=== PATIENT | male | born 1930 | race Caucasian/White ===

== ENCOUNTER 2016-10-28 20:20 | Inpatient (IN) | payer MEDICARE, OTHER ==
--- NOTE | ~2016-10-28 | EKG ---
PATIENT: NATALIA HENRY UNIT #: [id number] Ventricular Rate: 78 BPM Atrial Rate: 87 BPM QRS Duration: 132 ms Q-T Interval: 388 ms QTC Calculation(Bezet): 442 ms Calculated R Crescent: 78 degrees Calculated T Crescent: 40 degrees Diagnosis Line: Atrial fibrillation Diagnosis Line: Right bundle branch block Diagnosis Line: Abnormal ECG Diagnosis Line: When compared with ECG of 24-FEB-2014 20:26, Diagnosis Line: No significant change was found Diagnosis Line: Confirmed by CARLINE SALDAÑA MD ([id number]) on 10/29/2016 Diagnosis Line: 6:12:30 PM INTERPRETING MD: PIPER STRICKLAND
--- NOTE | ~2016-10-28 | CT57 ---
[facility] A Service of [facility] RADIOLOGY TEXT RESULTS PATIENT: NATALIA HENRY LOCATION: [facility] 54- : 29 UNIT #: [id number] AGE: [address]: Jordon Cadet MD SEX: M ORDER DR: [id number] [facility] [address]. [place], [place] [address] [id number] MR#: [id number] Acc #: [id number] NAME: NATALIA HENRY. : 1930 SEX: M STUDY DATE/TIME: 10/29/2016 15:56 UNIT: [facility] ROOM: [facility] STUDY DESCRIPTION: CT Chest Wo Cont Attending Physician: Jordon Cadet M.D. Referring Physician: David Vivas M.D. Ordering Physician: Earl Mckinley M.D. Primary Care Physician: David Vivas M.D. MEDICAL IMAGING REPORT This report is preliminary unless electronic signature is present EXAM High-resolution chest CT without contrast. INDICATIONS 86-year-old male with respiratory failure. Increased difficulty breathing for [address] of the chest was performed without contrast. Coronal and sagittal reformatted images were obtained. This CT exam was performed with one or more of the following radiation dose reduction techniques: automatic exposure control, adjustment of mA and/or kV according to patient size, and iterative reconstruction. COMPARISON STUDIES Chest CT from 07/14/2010. FINDINGS Emphysema. Dense consolidation in the left lower lobe, most consistent with pneumonia. 1.3-cm pulmonary nodule in the right lower lobe on image 41. The chronicity of this nodule is uncertain, but it is new compared with 2010. There is a second nodule in the right lower lobe measuring about 6 mm, which also is new since 2010. Selected HRCT imaging demonstrates mild cylindrical bronchiectasis in the lower lobes. There is no honeycombing. Trace bilateral pleural effusions. Stable prominent mediastinal lymph nodes. These are likely reactive. Coronary artery calcifications. Enlargement of the main pulmonary artery, which is nonspecific, but can be seen with pulmonary arterial hypertension. Limited imaging of the upper abdomen demonstrates multiple partially imaged hepatic cysts. Bone windows demonstrate degenerative changes of the spine. [facility]. [facility] A Service of [facility] & [facility] RADIOLOGY TEXT RESULTS PATIENT: NATALIA HENRY LOCATION: [facility] [phone] : 29 UNIT #: [id number] AGE: [address]: Jordon Cadet MD SEX: M ORDER DR: IMPRESSION 1. There is a dense consolidation in the left lower lobe most consistent with pneumonia. 2. There is a 1.3-cm nodule in the right lower lobe which is new since 2009, but the exact age of the nodule is uncertain. Benign and malignant etiologies are within the differential. Given the patient's emphysema, I would suggest either a PET/CT or short-interval 3-month follow-up chest CT. 3. 6-mm nodule in the right lower lobe, as well, can be followed. 4. Trace pleural effusions bilaterally. Dictated by... Esdras Lindquist M.D. THIS IS AN ELECTRONICALLY VERIFIED REPORT Esdras Lindquist M.D. at 10/30/2016 8:09 AM Robert TD: 10/29/2016 18:37 JOB #: [id number] MEDICAL IMAGING REPORT COPY
--- NOTE | ~2016-10-28 | DS ---
Unit #: [id number] #: [id number] Patient: NATALIA HENRY [id number] [address] [place], [place] [address] [id number] I MR#: [id number] NAME: NATALIA HENRY ROOM: 548 Age: 86 Sex: M Admission Date: 10/28/2016 : 1930 Discharge Date: 10/31/2016 Attending Physician: Jordon Cadet M.D. Referring Physician: David Vivas M.D. Primary Care Physician: David Vivas M.D. DISCHARGE SUMMARY ADMISSION DIAGNOSES Acute on chronic hypoxic respiratory failure, community-acquired pneumonia, diabetes, and stage 3 chronic kidney disease. DISCHARGE DIAGNOSIS Chronic respiratory failure with nocturnal oxygen. HOSPITAL COURSE The patient is an 86-year-old male, admitted to 10/28/2016 secondary to shortness of breath. In the emergency department, he states that his symptoms began about one week prior to admission. In the ED, he was noted to have temperature of a 101.3 and oxygen saturation of 83% on room air. Chest x-ray seemed consistent with pneumonia. The patient was started on Rocephin and Zithromax, and admitted to the hospital. The patient did well on said antibiotics and Xopenex as well. He underwent a CT of his chest that revealed 1.3 cm nodule in the right lower lobe of unknown significance. He was recommended CT scan 3-month followup. In addition to this, there was indeed noted to be a dense consolidation of the left lower lobe consistent with pneumonia. At this time, the patient's shortness of breath has largely resolved. He is saturating 93% on room air and is being discharged home on oral antibiotics at this time. DISCHARGE MEDICATIONS Flomax 0.4 mg p.o. daily, Coumadin 4 mg p.o. daily, atenolol 12.5 mg p.o. daily, Metamucil one pack daily, Breo Ellipta 100/25 one puff daily, oxygen 3 L at bedtime and p.r.n. during this convalescent, Lasix 40 mg p.o. daily, multivitamin daily, Amaryl 4 mg p.o. b.i.d., azithromycin 500 mg p.o. daily, Ceftin 500 mg p.o. b.i.d. FOLLOWUP The patient should follow up with Dr. Jacobs or Dr. Mckinley at the end of his antibiotic course. As mentioned above, he needs a followup chest CT without contrast in 3 months. Dictated by... Jordon Cadet M.D. [facility]/modl Unit #: [id number] #: [id number] Patient: NATALIA HENRY TD: 11/03/2016 04:56 JOB #: [id number] DISCHARGE SUMMARY X Jordon Cadet MD X DISCHARGE SUMMARY
--- NOTE | ~2016-10-28 | HP ---
Unit #: [id number] #: [id number] Patient: NATALIA HENRY [id number] [address] [place], [place] [address] [id number] I MR#: [id number] NAME: NATALIA HENRY. ROOM: 98203 Age: 86 Sex: M Admission Date: 10/28/2016 : 1930 Attending Physician: Roma Davila M.D. Referring Physician: David Vivas M.D. Primary Care Physician: David Vivas M.D. HISTORY AND PHYSICAL CHIEF COMPLAINT Community acquired pneumonia with acute hypoxic respiratory failure. HISTORY This pleasant 86-year-old male with COPD, MARY, hypertension, atrial fibrillation, is admitted for pneumonia. The patient was in his usual state of health until one week prior to admission when he developed increasing shortness of breath. He saw his primary care physician who started steroids. Since has developed a deep cough productive of thick yellow sputum. Today felt feverish and extremely weak as if he had the flu, and has been wheezing somewhat. He presented to this emergency department tonight with a temperature of 101.3, O2 saturation of 83% on room air. Chest x-ray was read as congestive heart failure versus atypical pneumonia. In the ER, the patient was given a gram of Tylenol, Rocephin, Zithromax, and referred for admission. He currently is feeling improved. PAST MEDICAL HISTORY 1. Previous admission 2013 for community acquired pneumonia. 2. AODM. 3. COPD and obstructive sleep apnea on CPAP, followed by Dr. Jacobs. 4. Hypertension. 5. GERD. 6. Atrial fibrillation, chronically anticoagulated with normal LV function on echo 01/2010. 7. BPH. 8. AODM. 9. Chronic kidney disease. 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 11. Hernia repair. 12. Left knee surgery. 13. 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 ALLERGIES No known drug allergies. HOME MEDICATIONS Breo Ellipta one puff daily; p.r.n. Albuterol; eye tablets daily; Amaryl 4 mg b.i.d.; Lasix 40 mg daily; Coumadin 4 mg daily; atenolol 12.5 mg daily; Flomax 0.4 mg daily. FAMILY HISTORY Noncontributory given patient's age. Unit #: [id number] #: [id number] Patient: NATALIA HENRY SOCIAL HISTORY The patient lives with his . He has a 50 pack year smoking history but stopped smoking over 20 years ago. Does not drink alcohol except on a very seldom basis. 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 REVIEW OF SYSTEMS Notable for productive cough, wheezing, shortness of breath, fever, weakness, COPD, MARY, hypertension, GERD, atrial fibrillation, BPH, chronic kidney disease, AODM, obstructive sleep apnea and above mentioned surgeries. All other systems were reviewed and are negative. PHYSICAL EXAMINATION GENERAL: Pleasant, young appearing 86-year-old male currently in no acute distress. VITAL SIGNS: Temperature 101.3, pulse 85, respirations 18, blood pressure 97/74, O2 saturation is 83% on room air. HEENT: Eyes - PERRLA, extraocular muscles are intact. Pharynx is benign. NECK: Supple without adenopathy or thyromegaly. CHEST: There are crackles at the bases but there is definitely more crackles on the right base than the left. CARDIAC: Irregular S1 and S2 without murmur. ABDOMEN: Bowel sounds are present. No hepatosplenomegaly, tenderness or masses. EXTREMITIES: Without clubbing, cyanosis or edema. NEUROLOGIC: Patient is awake, alert and oriented. Cranial nerves are intact. Equal strength throughout but generally weak on exam. DIAGNOSTIC STUDIES ADMISSION LABS: Hematocrit is 35, white blood count is 14.5, normal platelet count. SMA 12 - glucose 203, BUN 39, creatinine 1.6, up from a BUN of 26, creatinine 1.4 three years ago, chloride is 99, calcium 8.3, bilirubin is normal. BNP mildly elevated to 254. Lactic acid normal. INR is 3. Flu serology negative. Urinalysis negative. IMAGING STUDIES: Chest x-ray read as congestive heart failure and chronic lung disease, versus atypical pneumonia, moderate cardiomegaly. CARDIOLOGY STUDIES: EKG - atrial fibrillation rate 78 with a right bundle branch block. Unchanged from before. ASSESSMENT 1. Community acquired pneumonia with acute hypoxic respiratory failure and underlying COPD. 2. Atrial fibrillation, anticoagulated with normal ejection fraction 2009. 3. AODM. 4. BPH. 5. Chronic kidney disease, a little worse. 6. Obstructive sleep apnea. PLANS 1. Rocephin and Zithromax pending cultures and placed on Florastor. 2. Will give a bolus of IV fluids. 3. Hold Lasix for now. 4. Xopenex and continue Breo Ellipta. 5. 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 6. Daily PT and INR. Unit #: [id number] #: [id number] Patient: NATALIA HENRY 7. Will hold on placing on steroids, as patient does not have significant bronchospasm at present. Dictated by Roma Davila M.D. AML/ts TD: 10/29/2016 05:22 JOB #: [id number] HISTORY AND PHYSICAL X Roma Davila MD X HISTORY AND PHYSICAL
--- NOTE | ~2016-10-28 | CR72 ---
[facility] A Service of [facility] RADIOLOGY TEXT RESULTS PATIENT: NATALIA HENRY LOCATION: [place] [address] : 29 UNIT #: [id number] AGE: [address]: Jordon Cadet MD SEX: M ORDER DR: [id number] [facility] [address] [facility]. [place], [place] [address] [id number] I MR#: [id number] Acc #: [id number] NAME: NATALIA HENRY. : 1930 SEX: M STUDY DATE/TIME: 10/28/2016 19:56 UNIT: [facility] ROOM: 93016 STUDY DESCRIPTION: CR Chest Single View Portable Attending Physician: Roma Davila M.D. Referring Physician: David Vivas M.D. Ordering Physician: Mariann Knott M.D. Primary Care Physician: David Vivas M.D. MEDICAL IMAGING REPORT This report is preliminary unless electronic signature is present EXAM Single portable chest x-ray. DATE OF EXAM 10/28/2016 CLINICAL HISTORY Cough, short of air, weakness and congestion starting today, low O2 sats, history of hypertension. No injury. REPORT Single frontal portable view of the chest timed 19:56 on 10/28/2016. COMPARISON Compared to a study from 07/03/2015. FINDINGS There is again moderate cardiac silhouette enlargement, and there is underlying chronic lung disease with areas of probably emphysematous change in the upper lungs and parenchymal scarring more prominent in the lower lungs. On the current study, I believe there is now superimposed interstitial edema and some patchy alveolar changes. Findings probably due to superimposed congestive failure, but please exclude any clinical concern for atypical infectious process. Minor blunting of the costophrenic angles is chronic. No pneumothorax. IMPRESSION Findings together most suggestive of congestive failure superimposed upon underlying chronic lung disease. Please correlate further clinically and exclude any concern for atypical infectious pathology or other causes of interstitial edema and probably some early alveolar disease. Moderate cardiac silhouette enlargement. [facility] A Service of [facility] RADIOLOGY TEXT RESULTS PATIENT: NATALIA HENRY LOCATION: [place] [address] : 29 UNIT #: [id number] AGE: [address]: Jordon Cadet MD SEX: M ORDER DR: Dictated by... Susie Castro M.D. THIS IS AN ELECTRONICALLY VERIFIED REPORT Susie Castro M.D. at 10/29/2016 2:16 PM MIKE/luis alfredo TD: 10/29/2016 00:07 JOB #: [id number] MEDICAL IMAGING REPORT COPY
--- NOTE | ~2016-10-28 | CO ---
Unit #: [id number] #: [id number] Patient: NATALIA HENRY [id number] [address] [place], [place] [address] [id number] I MR#: [id number] NAME: NATALIA HENRY ROOM: 548 Age: 86 Sex: M Admission Date: 10/28/2016 : 1930 Attending Physician: Jordon Cadet M.D. Primary Care Physician: David Vivas M.D. Consultation Date: 10/29/2016 CONSULTATION REPORT JOB NOTE: CC: DR. DAVID VIVAS. REASON FOR CONSULTATION Possible pneumonia, COPD, respiratory failure. HISTORY OF PRESENT ILLNESS An 86-year-old gentleman with multiple medical problems including COPD, obstructive sleep apnea on CPAP, chronic respiratory failure on nocturnal oxygen, has had a 4 to 5-day history of not feeling well. On day of admission, he became quite weak. Upon admission to the emergency room, he had fever to 101.3. He has had mucopurulent sputum. No real wheezing, hemoptysis, or chest pain. He was treated with Rocephin and Zithromax and he does feel better today. PAST MEDICAL HISTORY Remarkable for COPD, chronic respiratory failure with nocturnal oxygen, obstructive sleep apnea on CPAP, diabetes, hypertension, atrial fibrillation, gastroesophageal reflux, and chronic kidney disease. MEDICATIONS At home, he is on Breo one puff a day, Amaryl, Lasix, Coumadin, atenolol, Flomax. He tells me he has a nebulizer at home with two medicines in it, I suspect DuoNeb. ALLERGIES No known medical allergies. 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 He quit smoking 20 years ago. FAMILY HISTORY No definite familial lung disease. REVIEW OF SYSTEMS He did not notice any fever at home, but may have had some chills. He does feel better today. No definite wheezing. No chest pain, palpitations, abdominal pain, melena, hematochezia, or difficulty swallowing. He tolerates his CPAP well without difficulty and wears it nightly. He has noticed increased shortness of breath over the last 1 year even prior to this illness. No leg pain swelling, dysuria, or hematuria. Further review of systems negative. PHYSICAL EXAMINATION Unit #: [id number] #: [id number] Patient: NATALIA HENRY GENERAL: Reveals a gentleman, who is in no acute distress, eating lunch, on his oxygen. VITAL SIGNS: He is currently afebrile, pulse 98, respiratory rate is 18, blood pressure is 113/59, 5 foot 9 inches, weight 201, BMI is 29. HEENT: Pupils are equal, round, and reactive to light. Sclerae anicteric. Head, atraumatic. Mucous membranes moist. He has natural teeth. NECK: Supple. No supraclavicular or cervical adenopathy appreciated. CHEST: He has fine bibasilar inspiratory crackles. No consolidation. CARDIAC: Reveals an irregular rhythm controlled rate, possible soft murmur. ABDOMEN: Soft and nontender. No hepatomegaly or rebound. EXTREMITIES: Reveal no clubbing, cyanosis, or edema. SKIN: Some mild brawny induration changes in lower extremities. No acute rash. NEUROLOGIC: Grossly intact. No focal motor or sensory deficits. DIAGNOSTIC STUDIES IMAGING STUDIES: Chest x-ray, faint increased interstitial markings. No definite lobar infiltrate. LABORATORY RESULTS: BUN is 39, creatinine is 1.6 which appears near to his baseline. His BNP is 254. Lactic acid 1.4. INR 3.0. Cardiac enzymes negative. White blood cell count was 14.5, hemoglobin 11.5, platelet count 149, no eosinophilia. Flu screen negative. Urinalysis, no definite urinary tract infection. Strep screen negative. Blood cultures pending. CARDIOVASCULAR STUDIES: EKG; right bundle-branch block, atrial fibrillation. IMPRESSION 1. Fever with sputum production suspect occult pneumonia. 2. Acute on chronic respiratory failure. 3. Chronic respiratory failure with nocturnal oxygen. 4. Obstructive sleep apnea, on CPAP with stated compliance. 5. Chronic obstructive pulmonary disease, no active bronchospasm. 6. My exam and x-ray suspect pulmonary fibrosis. 7. Atrial fibrillation, permanent. 8. Multiple medical problems listed above. PLAN Antibiotics for now. We will check sputum culture and follow up blood cultures. I will also check a respiratory pathogen panel in addition to strep and Legionella urinary antigen. When better and closure to discharge, his room air oxygenation needs will need to be checked. Continue his Breo, or substitute, nebulized bronchodilators. I will check a high-resolution CT scan for possible fibrosis and this also will identify any lobar pneumonia. Thank you very much for allowing me to participate in the care of Mr. Henry. Dictated by... Zeinab Rawls/yessenia Unit #: [id number] #: [id number] Patient: NATALIA HENRY TD: 10/30/2016 01:10 JOB #: [id number] CONSULTATION REPORT X Earl Mckinley MD CONSULTATION REPORT
[2016-10-28 19:56] LABS: BASOPHIL% 0.1 % (0-2.5); HEMOGLOBIN 11.5 gm/dL (13.0-16.0); LYMPHOCYTE# 0.5 X10e3 (1.0-3.5); LYMPHOCYTE% 3.3 % (17.0-45.0); MEAN CELL VOLUME 95.3 FL (83-96); MEAN CORPUSCULAR HEMOGLOBIN 31.4 PG (28-34); MEAN PLATELET VOLUME 8.8 FL (6.5-11.5); MONOCYTE# 1.3 X10e3 (0-1.0); MONOCYTE% 8.6 % (3.0-12.0); NEUTROPHIL# 12.8 X10e3 (1.5-7.1); PLATELET COUNT 149 X10e3 (140-420); RED BLOOD COUNT 3.67 X10e (3.90-5.60); WHITE BLOOD COUNT 14.5 X10e3 (4.0-10.5)
[2016-10-28 20:01] LABS: DIFF IND NO
[2016-10-28 20:20] LABS: ALBUMIN SERUM 3.3 g/dL (3.5-5.0); BILIRUBIN, DIRECT 0.4 mg/dL (0.0-0.2); BILIRUBIN,INDIRECT 0.7 mg/dL (0.0-0.9); BILIRUBIN,TOTAL 1.1 mg/dL (0.2-2.0); BUN/CREATININE RATIO 24.37; CALCIUM SERUM 8.3 mg/dL (8.4-10.2); CREATININE SERUM 1.6 mg/dL (0.6-1.4); GLOM FILT RATE Estimated 43.7 mL/min (>60); POTASSIUM 3.5 mmol/L (3.5-5.1); PROTEIN TOTAL SERUM 6.8 g/dL (6.0-8.3)
[~2016-10-28 20:20] MED LIST: ADVAIR 250-501 EACH IH; ATENOLOL PO; ATENOLOL-CHLORT1 TA3 PO; ATENOLOL25 MG PO; AUGMENTIN875 M1 PO; AZITHROMYCIN250 MG PO; COUMADIN1 MG PO; COUMADIN4 MG PO; COUMADIN5 MG PO; FLOMAX0.4 M1 PO; GLIMEPIRIDE2 MG PO; HUMIBID-LA600 MG PO; LASIX20 MG PO; LEVAQUIN25 MG/ML PO; OXYGEN; ROBITUSSIN100 MG/52 PO
[2016-10-28 20:25] LABS: URINE SOURCE CLEAN CATCH
[2016-10-28 20:33] LABS: URINE APPEARANCE CLEAR; URINE BILIRUBIN NEG (NEG); URINE BLOOD NEG (NEG); URINE COLOR YELLOW; URINE GLUCOSE NEG (NEG); URINE KETONE NEG (NEG); URINE LEUKOCYTE ESTERASE NEG (NEG); URINE NITRATE NEG (NEG); URINE PROTEIN NEG (NEG); URINE SPECIFIC GRAVITY 1.017 (1.003-1.035); URINE UROBILINOGEN 0.2 MG/DL (NEG)
[2016-10-28 20:36] LABS: CULTURE INDICATED? NO
[2016-10-28 21:51] LABS: POC - CKMB 4.8 ng/mL (0.0-7.9); POC - TROPONIN <0.05 ng/mL (<=0.05)
[2016-10-28 22:21] LABS: PROTHROMBIN TIME (PATIENT) 32.7 SECONDS (9.6-11.5)
[2016-10-28 22:27] LABS: INFLUENZA A NEG (NEG); INFLUENZA B NEG (NEG)
[2016-10-28] MEDS ORDERED: AMARYL PO (23:03)
[2016-10-28] MEDS ORDERED: BREO ELLIPTA 11 EACH INH (23:03)
[2016-10-28] MEDS ORDERED: EYE VITAMIN-MI1 EACH PO (23:03)
[2016-10-28] MEDS ORDERED: LASIX PO (23:04)
[2016-10-28] MEDS ORDERED: ATENOLOL25 MG PO (23:04)
[2016-10-28] MEDS ORDERED: FLOMAX0.4 M1 PO (23:04)
[2016-10-28] MEDS ORDERED: COUMADIN4 MG PO (23:04)
[2016-10-28 23:13] LABS: POC - CKMB 3.8 ng/mL (0.0-7.9); POC - TROPONIN <0.05 ng/mL (<=0.05)
[2016-10-29] MEDS ORDERED: OXYGEN (07:41)
[2016-10-29] MEDS ORDERED: METAMUCIL1 PKT PO (08:27)
[2016-10-30 05:43] LABS: BASOPHIL% 0.2 % (0-2.5); EOSINOPHIL% 0.2 % (0.0-7.0); HEMATOCRIT 33.2 % (38.0-50.0); LYMPHOCYTE# 1.3 X10e3 (1.0-3.5); LYMPHOCYTE% 11.7 % (17.0-45.0); MEAN CELL VOLUME 95.9 FL (83-96); MEAN CORPUSCULAR HEMOGLOBIN 31.8 PG (28-34); MEAN CORPUSCULAR HGB CONC 33.1 g/dL (30-36); MEAN PLATELET VOLUME 9.2 FL (6.5-11.5); MONOCYTE# 1.2 X10e3 (0-1.0); MONOCYTE% 11.4 % (3.0-12.0); NEUTROPHIL# 8.2 X10e3 (1.5-7.1); NEUTROPHIL% 76.5 % (40-75); PLATELET COUNT 150 X10e3 (140-420); RED BLOOD COUNT 3.46 X10e (3.90-5.60); RED CELL DISTRIBUTION WIDTH 17.3 % (11.0-15.5); WHITE BLOOD COUNT 10.7 X10e3 (4.0-10.5)
[2016-10-30 05:51] LABS: PROTHROMBIN TIME (PATIENT) 32.3 SECONDS (9.6-11.5)
[2016-10-30 05:53] LABS: DIFF IND NO
[2016-10-30 07:05] LABS: CALCIUM SERUM 8.5 mg/dL (8.4-10.2); CREATININE SERUM 1.4 mg/dL (0.6-1.4); POTASSIUM 3.8 mmol/L (3.5-5.1)
[2016-10-31 06:03] LABS: HEMATOCRIT 32.6 % (38.0-50.0); HEMOGLOBIN 10.8 gm/dL (13.0-16.0); MEAN CELL VOLUME 95.1 FL (83-96); MEAN CORPUSCULAR HEMOGLOBIN 31.6 PG (28-34); MEAN CORPUSCULAR HGB CONC 33.2 g/dL (30-36); MEAN PLATELET VOLUME 8.9 FL (6.5-11.5); RED BLOOD COUNT 3.43 X10e (3.90-5.60); RED CELL DISTRIBUTION WIDTH 17.4 % (11.0-15.5)
[2016-10-31 06:48] LABS: INR 3.2; PROTHROMBIN TIME (PATIENT) 35.1 SECONDS (9.6-11.5)
[2016-10-31 06:52] LABS: BLOOD UREA NITROGEN 24 mg/dL (9-23); BUN/CREATININE RATIO 21.81; CALCIUM SERUM 8.7 mg/dL (8.4-10.2); CARBON DIOXIDE 30 mmol/L (22-31); CHLORIDE 101 mmol/L (100-111); CREATININE SERUM 1.1 mg/dL (0.6-1.4); GLOM FILT RATE Estimated ABOVE60 mL/min (>60); GLUCOSE FASTING 207 mg/dL (70-110); SODIUM 141 mmol/L (135-145)
[2016-10-31] MEDS ORDERED: ZITHROMAX500 MG PO (13:51)
[2016-10-31] MEDS ORDERED: CEFTIN500 MG PO (13:52)
== END 2016-10-31 14:46 | disposition home or self-care (01) | DRG 193 ==
LOC: CED 20:20 → CEDOF 23:45 → C5B 10-29 07:24
PROVIDERS: Emergency Medicine; Internal Medicine
DX: J18.9 Pneumonia, unspecified organism (principal); J96.21 Acute and chronic respiratory failure with hypoxia; E11.22 Type 2 diabetes mellitus with diabetic chronic kidney disease; J44.9 Chronic obstructive pulmonary disease, unspecified; G47.33 Obstructive sleep apnea (adult) (pediatric); I48.91 Unspecified atrial fibrillation; Z79.84 Long term (current) use of oral hypoglycemic drugs; K21.9 Gastro-esophageal reflux disease without esophagitis; Z79.01 Long term (current) use of anticoagulants; I12.9 Hypertensive chronic kidney disease with stage 1 through stage 4 chronic kidney disease, or unspecified chronic kidney disease; Z99.81 Dependence on supplemental oxygen; Z87.891 Personal history of nicotine dependence; N18.3 Chronic kidney disease, stage 3 (moderate)
CPT/HCPCS: 36415; 71010; 71250; 80048; 80076; 81003; 82553; 82947; 83605; 83880; 84484; 85025; 85027; 85610; 87040; 87070; 87205; 87449; 87651; 87804; 87880; 87899; 93005; 94640; 94760; 96365; 99285; J0456; J0696; J1815

== ENCOUNTER → 2017-02-11 | Outpatient (CLI) | payer MEDICARE, OTHER ==
[~2017-02-11] MED LIST changes: +AMARYL PO; +AMARYL2 MG PO; +BREO ELLIPTA 11 EACH INH; +CEFTIN500 MG PO; +EYE VITAMIN-MI1 EACH PO; +LASIX PO; +METAMUCIL1 PKT PO; +TENORMIN25 MG PO; +ZITHROMAX500 MG PO
--- NOTE | ~2017-02-11 | CT57 ---
[facility] A Service of [facility] & [facility] RADIOLOGY TEXT RESULTS PATIENT: NATALIA HENRY LOCATION: [facility] : 29 UNIT #: [id number] AGE: [address]: Calderon Jacobs MD SEX: M ORDER DR: [id number] [place] [id number] [facility]. [place], [place] [address] [id number] O MR#: [id number] Acc #: [id number] NAME: NATALIA HENRY. : 1930 SEX: M STUDY DATE/TIME: 02/11/2017 12:21 UNIT: [facility] ROOM: STUDY DESCRIPTION: CT Chest Wo Cont Attending Physician: Calderon Jacobs M.D. Referring Physician: Calderon Jacobs M.D. Ordering Physician: Calderon Jacobs M.D. Primary Care Physician: David Vivas M.D. MEDICAL IMAGING REPORT This report is preliminary unless electronic signature is present EXAM CT chest without contrast high-resolution protocol INDICATIONS Pulmonary fibrosis. Follow up pulmonary nodule and dense consolidation, previously shown in the left lower lobe. PROCEDURE Unenhanced CT of the chest utilizing high-resolution protocol. This CT exam was performed with one or more of the following radiation dose reduction techniques: automatic exposure control, adjustment of mA and/or kV according to patient size, and iterative reconstruction. COMPARISON 10/29/2016 FINDINGS Centrilobular emphysema. Previously demonstrated left lower lobe opacity has resolved. Redemonstration of diffuse subpleural interstitial thickening and scattered areas of scarring. There is no honeycombing. [id number] diffuse bronchiectasis. Previously demonstrated right lower lobe nodule has increased in size. It now measures 2.1 cm, previously 1.1 cm. There is scattered new nodules in both lungs. Index nodule posterior left upper lobe measures up to 9 mm. No pleural fluid or pneumothorax. No significant air trapping. Mildly prominent mediastinal lymph nodes are unchanged. Prominence of the pulmonary arteries. The right measures 3.9 cm in diameter. Coronary artery calcification. Mild cardiomegaly. No acute findings in the included upper abdomen. No aggressive appearing bone lesion. Stable subcutaneous nodules in the back. STS. [facility] A Service of [facility] & [facility] RADIOLOGY TEXT RESULTS PATIENT: NATALIA HENRY LOCATION: [facility] : 29 UNIT #: [id number] AGE: [address]: Calderon Jacobs MD SEX: M ORDER DR: IMPRESSION 1. Subpleural interstitial thickening and scarring is unchanged from the previous study. There is no honeycombing to suggest a UIP type pattern. 2. Interval clearing of the left lower lobe opacity. 3. Increase in size of the right lower lobe nodule as well as development of a few new nodules scattered in both lungs. Suspicious for metastatic disease. Correlate with any relevant history. Consider evaluation with a PET scan to evaluate malignant potential and extent of disease. 4. Centrilobular emphysema. Underlying pulmonary arterial hypertension. Dictated by... Charli Gifford M.D. THIS IS AN ELECTRONICALLY VERIFIED REPORT Charli Gifford M.D. at 02/12/2017 10:22 PM Inocencia TD: 02/12/2017 16:29 JOB #: [id number] MEDICAL IMAGING REPORT Page 1 of 1 COPY
== END | disposition home or self-care (01) ==
LOC: CCAT 12:09
DX: J84.10 Pulmonary fibrosis, unspecified (principal); R91.1 Solitary pulmonary nodule; J98.4 Other disorders of lung; R91.8 Other nonspecific abnormal finding of lung field; J43.2 Centrilobular emphysema
CPT/HCPCS: 71250

== ENCOUNTER 2017-05-12 03:09 | Inpatient (IN) | payer MEDICARE, OTHER ==
[~2017-05-12] VITALS: Ht 175.3 cm; Wt 99.0 kg
--- NOTE | ~2017-05-12 | DS ---
Unit #: [id number] #: [id number] Patient: NATALIA HENRY [id number] [address] [place], [place] [address] [id number] I MR#: [id number] NAME: NATALIA HENRY ROOM: 215 Age: 86 Sex: M Admission Date: 05/12/2017 : 1930 Discharge Date: 05/17/2017 Attending Physician: Xiang Ochoa M.D. Primary Care Physician: David Vivas M.D. DISCHARGE SUMMARY REASON FOR ADMISSION Shortness of breath, productive cough, probable community-acquired pneumonia, profound weakness. HISTORY OF PRESENT ILLNESS/HOSPITAL COURSE The patient is a very pleasant 86-year-old male, who originally presented secondary to shortness of breath, dyspnea, and profound weakness. He apparently had been having weakness for the past several days. He underwent evaluation in the emergency room, which showed a CT chest concerning for possible metastatic disease versus primary lung carcinoma, also consistent with community-acquired pneumonia. He was noted to be in acute hypoxic respiratory failure with COPD exacerbation at that time. On initial evaluation, his abdomen was noted to be swollen and/or distended. He underwent a CT of abdomen and pelvis, which raised the possibility of free air and possible colonic perforation. This prompted surgical services evaluation. LSA saw and evaluated the patient. The patient ultimately underwent an evaluation and/or exploratory laparotomy, which did reveal a colon mass as well as perforation of colon. He underwent a colectomy as well as ostomy placement. He was maintained in the ICU with consultations placed to Dr. Mckinley for routine care as well as Dr. Long secondary to his prior history of aortic stenosis. Postoperatively, unfortunately, he continued to decline. His mental status declined as well as intractable pain. Secondary to concerning metastatic lesions, we placed consultation to Dr. Razo of oncology services. After review and discussion between Dr. Razo and family, decision was made for comfort care measures and/or hospice consultation. Therefore, at this point in time, his routine medications have been discontinued. Consultation has been placed to hospice for ongoing care. Unfortunately, his overall prognosis is poor. FINAL DISCHARGE/CURRENT DIAGNOSES 1. Colon cancer. 2. Perforated colon. 3. Sepsis present on admission. 4. Acute hypoxic/hypercapnic respiratory failure. 5. Duci-yr-mkqyrbmd aortic stenosis. 6. Coronary artery disease history. 7. Atrial fibrillation. 8. Chronic kidney disease. Unit #: [id number] #: [id number] Patient: NATALIA HENRY 9. Questionable metastatic lesions within lung. DISCHARGE DISPOSITION Comfort care measures and/or hospice care. After hospice evaluation, further disposition, scattered bed versus home versus inpatient hospice will be decided. Dictated by... Zeinab Floyd/yessenia TD: 05/20/2017 02:57 JOB #: [id number] DISCHARGE SUMMARY Page 1 of 1 X Xiang Ochoa MD X DISCHARGE SUMMARY
--- NOTE | ~2017-05-12 | XA166 ---
[facility] A Service of [facility] & [facility] RADIOLOGY TEXT RESULTS PATIENT: NATALIA HENRY LOCATION: [address] : [birth year] UNIT #: [id number] AGE: [address]: Xiang Ochoa MD SEX: M ORDER DR: [id number] [facility] [address] [place], [place] [address] [id number] I MR#: [id number] Acc #: [id number] NAME: NATALIA HENRY : 1930 SEX: M STUDY DATE/TIME: 05/12/2017 9:51 UNIT: [facility] ROOM: [facility] STUDY DESCRIPTION: XA PICC Line Placement WO Port Attending Physician: Xiang Ochoa M.D. Ordering Physician: Carlos Enrique Mckinley, Phd Primary Care Physician: David Vivas M.D. MEDICAL IMAGING REPORT This report is preliminary unless electronic signature is present EXAM Right sided PICC line placement INDICATIONS Need for IV access in a patient with pneumonia and pulmonary metastases. PRE-PROCEDURE The procedure was explained to the patient and/or patient community representative including risks, benefits, potential complications and potential for alternative forms of treatment. Informed consent was obtained, and prior to initiating the procedure a formal timeout procedure was performed. PROCEDURE Using full standard sterile barrier technique, including caps, gowns, gloves, masks, as well as sterile skin preparation and standard sterile draping, the right arm was prepped and draped in the usual fashion, and real-time sterile ultrasound guidance was used to localize an arm vein and to confirm vessel patency. A hard copy ultrasound image was recorded. After local anesthesia with 1% Xylocaine, the vein was punctured using real-time sterile ultrasound guidance, and an 0.018 guidewire was advanced into the superior vena cava, using fluoroscopic guidance. A 5-Tongan dual-lumen PICC was then measured and deployed with the tip positioned in the superior vena cava. The position of the line was documented with a radiographic image. The line was secured in place with an adhesive dressing and an antibiotic patch was applied. Total fluoro time was 0.1 minutes. A single fluoroscopic image was obtained. AK was 3 mGy. IMPRESSION Successful placement of a 6-Tongan dual-lumen PowerPICC via the arm under ultrasound and fluoroscopic guidance. The tip of the PICC is in good STS. [facility] A Service of [facility] / [facility] RADIOLOGY TEXT RESULTS PATIENT: NATALIA HENRY LOCATION: [address] : [birth year] UNIT #: [id number] AGE: [address]: Xiagn Ochoa MD SEX: M ORDER DR: position in the superior vena cava. Dictated by... Анна Arboleda M.D. THIS IS AN ELECTRONICALLY VERIFIED REPORT Анна Arboleda M.D. at 05/14/2017 2:44 PM AFF/pancho TD: 05/13/2017 13:09 JOB #: [id number] MEDICAL IMAGING REPORT Page 1 of 1 COPY
--- NOTE | ~2017-05-12 | CR71 ---
[facility] A Service of [facility] & [facility] RADIOLOGY TEXT RESULTS PATIENT: NATALIA HENRY LOCATION: [place] [id number] : [birth year] UNIT #: [id number] AGE: [address]: Xiang Ochoa MD SEX: M ORDER DR: [id number] [facility] [address] [facility]. [place], [place] [address] [id number] I MR#: [id number] Acc #: [id number] NAME: NATALIA HENRY : 1930 SEX: M STUDY DATE/TIME: 05/13/2017 21:39 UNIT: [facility] ROOM: [facility] STUDY DESCRIPTION: CR Chest Single View Attending Physician: Xiang Ochoa M.D. Ordering Physician: Deshawn Bazzi M.D. Primary Care Physician: David Vivas M.D. MEDICAL IMAGING REPORT This report is preliminary unless electronic signature is present EXAM Frontal chest, 05/13/2017. INDICATIONS Status post tube placement, short of air with exertion. Symptoms began today. TECHNIQUE Frontal chest compared with 0724 hours. FINDINGS ET tube tip in good position about 6 cm above the level of the alaina. Right-sided PICC line unchanged. There is a central line from a right neck approach terminating at the proximal SVC level. No pneumothorax. Interstitial prominence throughout both lungs persists. Probable atelectasis and small left effusion. Right-sided effusion and probable atelectasis in the mid and lower lung zones persists. There is pleural thickening or partially loculated pleural fluid tracking superiorly on the right. Faint pulmonary nodules on the left not significantly changed for technical factors. IMPRESSION 1. Tubes and lines appear to be in satisfactory position. No pneumothorax. 2. Cardiomegaly with bilateral effusions and probable bibasilar atelectasis right greater than left. 3. Faint lung nodules on the left not significantly changed. Dictated by... Rojas Anderson M.D. THIS IS AN ELECTRONICALLY VERIFIED REPORT Rojas Anderson M.D. at 05/14/2017 11:22 AM [facility] A Service of [facility] & [facility] RADIOLOGY TEXT RESULTS PATIENT: NATALIA HENRY LOCATION: [place] [address]03 : 29 UNIT #: [id number] AGE: [address]: Xiang Ochoa MD SEX: M ORDER DR: Teddy TD: 05/14/2017 09:32 JOB #: [id number] MEDICAL IMAGING REPORT Page 1 of 1 COPY
--- NOTE | ~2017-05-12 | CT2 ---
[facility] A Service of [facility] & [facility] RADIOLOGY TEXT RESULTS PATIENT: NATALIA HENRY LOCATION: [address] : [birth year] UNIT #: [id number] AGE: [address]: Xiang Ochoa MD SEX: M ORDER DR: [id number] [facility] [address] [facility]. [place], [place] [address] [id number] I MR#: [id number] Acc #: [id number] NAME: NATALIA HENRY. : 1930 SEX: M STUDY DATE/TIME: 05/13/2017 13:15 UNIT: [facility] ROOM: [facility] STUDY DESCRIPTION: CT Abd and Pelv W Cont Attending Physician: Xiang Ochoa M.D. Primary Care Physician: David Vivas M.D. MEDICAL IMAGING REPORT This report is preliminary unless electronic signature is present EXAM CT abdomen and pelvis 05/13 INDICATION Weakness for 1 week with abdominal pain for a few days. TECHNIQUE Axial images were obtained through the abdomen and pelvis following oral and IV contrast administration. Multiplanar reformats were obtained. Comparison made with noncontrast exam performed yesterday. This CT examination was performed with one or more of the following radiation dose reduction techniques: automatic exposure control, adjustment of mA and/or kV according to patient size, and iterative reconstruction. FINDINGS ABDOMEN: There has been interval worsening in small bilateral pleural effusions. There is increasing consolidation in the lower lobes which may reflect atelectasis and/or pneumonia. There is a 12 mm noncalcified nodule in the left lower lobe. Please see chest CT report from yesterday. There are multiple small low-density lesions scattered about the liver. These measure 1.5 cm or less in size. They are not seen on a contrast CT from 2009 and could certainly reflect metastatic disease in the appropriate clinical setting. Multiple bilateral renal cysts are again seen, some of which have some thin calcification in their cee. Adrenal glands, pancreas, and spleen appear normal. Low-density lesion adjacent to the splenic head seen on the noncontrast exam is compatible with a duodenal diverticulum. Gallbladder contains stones. No biliary ductal dilatation or pancreatic ductal dilatation is seen. There is free intraperitoneal air that has increased in volume since yesterday. This would suggest an ongoing bowel perforation. The stomach and small bowel are mildly distended. There is reflux of oral contrast into the lower thoracic esophagus. Scattered colonic diverticula are present. There is some fluid associated with the lower margin of the patient's ventral wall [facility] A Service of [facility] & [facility] RADIOLOGY TEXT RESULTS PATIENT: NATALIA HENRY LOCATION: CICCU2 CICCU2-03 : 29 UNIT #: [id number] AGE: [address]: Xiang Ochoa MD SEX: M ORDER DR: mesh. This volume of fluid has increased since yesterday. The exact site of perforation is unclear. However, a thickened loop of transverse colon is seen closely adherent to the left side of the mesh and this could be the site of perforation as this does appear inflamed. No drainable abscess is identified. PELVIS: Urinary bladder is decompressed around a Weber catheter. There is increased volume of free fluid in the lower pelvis. Lower GI tract is grossly normal. IMPRESSION 1. Increased volume of free air in the abdomen with increased volume of free fluid in the abdomen and pelvis. This would suggest an ongoing bowel perforation. While the exact site of perforation is not seen, there is a thickened loop of transverse colon that appears closely adherent to the left side of the patient's ventral wall mesh. This could be the site of perforation. Malignancy is not excluded in this location. 2. Distension of the stomach and small bowel which may reflect an ileus. There is gastroesophageal reflux. 3. Increased pleural fluid bilaterally with increased consolidation in the lower lobes. Considerations include atelectasis and/or pneumonia. Again seen is a 12 mm left lower lobe nodule. Please see chest CT report from yesterday. 4. Scattered low-density lesions in the liver are new since the 2009 contrast enhanced study and could reflect metastatic disease. 5. There is fluid and gas associated with the mesh in the ventral wall. The amount of adjacent fluid has slightly increased since yesterday. I cannot exclude some component of infection involving the mesh itself. STAT * RESULT Images were reviewed with Dr. Bazzi Dictated by... Deshawn Reis Jr., M.D. THIS IS AN ELECTRONICALLY VERIFIED REPORT Deshawn Reis Jr., M.D. at 05/14/2017 8:28 AM GILBERT/jayden TD: 05/13/2017 14:00 JOB #: [id number] MEDICAL IMAGING REPORT Page 1 of 1 COPY
--- NOTE | ~2017-05-12 | CO ---
Unit #: [id number] #: [id number] Patient: NATALIA HENRY P [id number] [address] [place], [place] [address] [id number] I MR#: [id number] NAME: NATALIA HENRY ROOM: [facility] Age: 86 Sex: M Admission Date: 05/12/2017 : 1930 Attending Physician: Xiang Ochoa M.D. Primary Care Physician: David Vivas M.D. Consultation Date: 05/13/2017 CONSULTATION REPORT HISTORY OF PRESENT ILLNESS Mr. Henry is an 86-year-old gentleman with a history of multiple comorbid conditions who presented to the emergency room with shortness of air, productive cough and progressive weakness over the last 2 weeks. He was admitted for probable community-acquired pneumonia. He was noted to be febrile to 102.4, has been started on multiple antibiotics. During his evaluation, a CT scan of the abdomen and pelvis was obtained and revealed some possible air and inflammatory changes around an intraperitoneal mesh that was placed for a hernia repair and also has some inflammatory changes in the transverse colon, closely associated with the mesh. There is suspected diverticula in the area and he does have a history of diverticular disease and has even had a previous resection for diverticular disease. However, they cannot completely rule out an underlying mass. There are no drainable fluid collection and no free intraperitoneal air. The patient denies ever having had a colonoscopy and he does not recall what portion of his colon was resected previously as it was done more than 20 years ago according to him. Also during his evaluation, CT of the chest was obtained and there was a question of pulmonary metastatic disease of unknown primary. 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 Currently, he denies any nausea or vomiting. He said he had a soft stool without any blood yesterday and he did not initially have any abdominal pain, although now he feels distended and diffusely tender with the maximal area of tenderness on the right lower quadrant. He states he is hungry. PAST MEDICAL HISTORY Diabetes mellitus; COPD; obstructive sleep apnea, on home oxygen and CPAP; atrial fibrillation, chronically anticoagulated; history of multiple episodes of pneumonia; benign prostatic hypertrophy; chronic kidney disease; hypertension; thoracic aortic aneurysm; previous colon resection; repair of incisional ventral hernia with intraperitoneal mesh; left knee surgery; melanoma resection. ALLERGIES No allergies to medication. HOME MEDICATIONS Include Flomax, Coumadin, atenolol, Advair, Lasix and Amaryl. Here, his hospital medications include vancomycin, metronidazole, Maxipime, and doxycycline. He initially was on Levophed. He is on Flomax, Dulera, Tenormin, Solu-Cortef, Protonix, Pepcid, NovoLog, Amaryl, Tylenol, Zofran. FAMILY HISTORY Unit #: [id number] #: [id number] Patient: NATALIA HENRY He is unaware of any chronic or inheritable diseases. SOCIAL HISTORY Lives at home with his . Long smoking history, but stopped 20 years ago. Denies use of alcohol. He is retired. 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 Says his stools have been soft, but not diarrhea. He currently states he is hungry. He has had a productive cough for 2 weeks at home and did have a course of outpatient oral antibiotics. PHYSICAL EXAMINATION VITAL SIGNS: Temperature is 98.5, his T-max was 102.4, pulse 98, respirations 20, he is wearing his CPAP, blood pressure 139/96. GENERAL: He is awake, alert, oriented, pleasant and cooperative. He complains of diffuse abdominal pain, mostly on the right side in the mid to lower abdomen. He does not have any nausea or vomiting and he states he is hungry. He is very cooperative to exam. He moves around in bed quite easily, not demonstrating any peritoneal signs. HEENT: No palpable nodes. No carotid bruits. CARDIAC: Regular rhythm. No murmurs appreciated. LUNGS: Clear anteriorly. CHEST: On his back, there are multiple sebaceous cysts. It should be noted on CT of the chest where question of these nodules and whether or not they could be metastatic, but they appeared to be sebaceous cyst. ABDOMEN: His abdomen is distended. He has mild guarding throughout, but does not have rebound tenderness to exam, especially when distracted. He complains of most discomfort on the right side, particularly the right mid abdomen and right lower quadrant, but there is no rebound, no mass. There is no erythema of the abdominal wall. EXTREMITIES: No edema. NEUROLOGIC: Grossly intact. DIAGNOSTIC STUDIES LABORATORY RESULTS: Basic metabolic panel shows normal electrolytes with a sodium of 140, potassium 4.1, chloride 109, CO2 of 25, BUN 25, creatinine 1.2, glucose 245, calcium 7.7, albumin 2.6. Liver chemistries were all within normal limits and his lactic acid on admission was 1.5. Beta natriuretic protein is 423. INR is 2.4. Hemoglobin 9.2, white count 22,500, platelets 144,000. Legionella and Strep tests were negative. Urinalysis negative for infection. IMAGING STUDIES: CT chest, as described. CT of the abdomen and pelvis as described. Also, in the abdomen and pelvis, there was question of a pancreatic head mass and cholelithiasis, but no evidence of acute cholecystitis. ASSESSMENT AND PLAN An 86-year-old gentleman presents with 2-week history of pulmonary symptoms that have progressed and he became febrile and had a productive cough, exhibited weakness and inability to get up after falling at home. During his evaluation, CT scan of the abdomen and pelvis was found to have some inflammatory changes of the transverse colon and around the mesh from a previous hernia repair. His CT of the chest was worrisome for pulmonary mets. His abdominal exam shows no erythema of the abdominal wall and he does not have peritoneal signs, although he is diffusely tender with some increased tenderness on the right side of the abdomen. He does not have a Unit #: [id number] #: [id number] Patient: NATALIA HENRY surgical abdomen to examination and the patient is awake, alert, and oriented. The patient does have a history of diverticular disease. He denies ever having had a colonoscopy, but has had a colon resection in the remote past. There is no free air or drainable fluid collection on CT scan. The patient has multiple comorbid conditions and is currently anticoagulated with an INR of 2.4. At this time, I will continue the antibiotics and see how he responds. He does not have an acute surgical abdomen. If he continues to improve, at some point, I would consider colonoscopy to assess his colon to evaluate him for possible mass and/or diverticular disease. He also at some point will need a repeat CT scan of the abdomen pelvis with contrast to evaluate the pancreatic head mass. If at any time, he clinically deteriorates, then the need for exploratory laparotomy and possible mesh removal, colon resection or other intraabdominal procedures may be necessary, but again, at this time, he does not have a surgically acute abdomen. We will follow him closely and I will discuss the case with Dr. Mckinley. Dictated by... Zeinab Muñoz/yessenia TD: 05/14/2017 02:08 JOB #: [id number] CONSULTATION REPORT Page 1 of 1 X Deshawn Bazzi MD X CONSULTATION REPORT
--- NOTE | ~2017-05-12 | CR72 ---
[facility] A Service of [facility] & [facility] RADIOLOGY TEXT RESULTS PATIENT: NATALIA HENRY LOCATION: [address] : 29 UNIT #: [id number] AGE: [address]: Xiang Ochoa MD SEX: M ORDER DR: [id number] [facility] [address] [facility]. [place], [place] [address] [id number] I MR#: [id number] Acc #: [id number] NAME: NATALIA HENRY. : 1930 SEX: M STUDY DATE/TIME: 05/12/2017 4:01 UNIT: [facility] ROOM: 40202 STUDY DESCRIPTION: CR Chest Single View Portable Attending Physician: Deshawn Choi M.D. Ordering Physician: Deshawn Choi M.D. Primary Care Physician: David Vivas M.D. MEDICAL IMAGING REPORT This report is preliminary unless electronic signature is present EXAM Portable chest. INDICATIONS Shortness of air for the past 2 days. PROCEDURE Frontal view of the chest. COMPARISON 10/28/2016 FINDINGS Stable cardiomegaly and chronic-appearing interstitial coarsening. No dense consolidation. No pneumothorax. IMPRESSION No active process. No acute change compared with 10/28/2016. Dictated by... Charli Gifford M.D. THIS IS AN ELECTRONICALLY VERIFIED REPORT Charli Gifford M.D. at 05/14/2017 9:58 PM EED/neris TD: 05/12/2017 07:57 JOB #: [id number] MEDICAL IMAGING REPORT Page 1 of 1 COPY
--- NOTE | ~2017-05-12 | CT4 ---
[facility] A Service of [facility] & [facility] RADIOLOGY TEXT RESULTS PATIENT: NATALIA HENRY LOCATION: [place] [address] : 29 UNIT #: [id number] AGE: [address]: Xiang Ohcoa MD SEX: M ORDER DR: [id number] [facility] [address] [place], [place] [address] [id number] I MR#: [id number] Acc #: [id number] NAME: NATALIA HENRY : 1930 SEX: M STUDY DATE/TIME: 05/12/2017 13:03 UNIT: [facility] ROOM: [facility] STUDY DESCRIPTION: CT Abd and Pelv Wo Cont Attending Physician: Xaing Ochoa M.D. Ordering Physician: Earl Mckinley M.D. Primary Care Physician: David Vivas M.D. MEDICAL IMAGING REPORT This report is preliminary unless electronic signature is present EXAM CT abdomen and pelvis without contrast 05/12/2017 HISTORY 86-year-old male with abdominal pain, sepsis, and fever for a few days. COMPARISON CT abdomen 07/12/2010. TECHNIQUE Helical scan performed through the abdomen and pelvis without oral or IV contrast. Coronal and sagittal reformatted images. This CT examination was performed with one or more of the following radiation dose reduction techniques: automatic exposure control, adjustment of mA and/or kV according to patient size, and iterative reconstruction. FINDINGS Please see CT chest performed the same date and dictated separately for detailed findings above the diaphragm. The liver, spleen, both adrenal glands are grossly unremarkable allowing for lack of IV contrast. There is a questionable area of decreased attenuation in the head of the pancreas measuring 3.7 x 2.8 cm. Pancreatic mass is not completely excluded on this unenhanced exam and further characterization with multiphase CT or MRI is recommended. Cholelithiasis is noted. Numerous bilateral renal cysts are again noted and do not appear significantly changed from the patient's previous CT abdomen and pelvis 07/12/2010. No evidence of hydronephrosis. Abdominal aorta normal in course and caliber with extensive atherosclerotic calcification. Ventral abdominal wall hernia repair. There is a thin collection of free air noted along the hernia repair mesh. The etiology is uncertain, but there is a somewhat thickened loop of transverse colon along the left margin of the hernia repair mesh and there is also STS. [facility] A Service of [facility] / [facility] RADIOLOGY TEXT RESULTS PATIENT: NATALIA HENRY [address] [birth year] UNIT #: [id number] AGE: [address]: Xiang Ochoa MD SEX: M ORDER DR: diverticulosis of the transverse colon. A perforated diverticulum is not excluded. There is also some inflammatory stranding in the omentum along the deep surface of the ventral abdominal hernia repair. There is mild ventral abdominal wall thickening. Inflammation or infection may be considered. No drainable fluid collections are seen. Small bowel is unremarkable without obstruction. Remainder of the colon is unremarkable. Urinary bladder and prostate gland are unremarkable. No free pelvic fluid. No acute bony abnormalities. IMPRESSION 1. Please refer to CT chest performed the same date and dictated separately for detailed findings above the diaphragm. 2. Postsurgical changes from ventral abdominal wall hernia repair. There is a thin collection of gas along the deep surface of the hernia repair mesh and there is surrounding inflammatory stranding in the omentum as well as ventral abdominal wall thickening. Inflammation/infection is not excluded. The etiology of the gas collection is uncertain. However, there is a somewhat focally thickened loop of transverse colon along the left margin of the hernia repair mesh and there are multiple diverticula in the transverse colon. Diverticulitis with a perforated diverticulum is not completely excluded. Underlying colon mass could also be considered in the differential. No drainable fluid collections. 3. Questionable, somewhat ill-defined area of hypoattenuation in the region of the pancreatic head. This measures 3.7 x 2.8 cm. A mass in the pancreatic head cannot be excluded on this unenhanced exam. Consider further characterization with multiphase CT or MRI. 4. Cholelithiasis. 5. Multiple renal cysts. At the time of dictation, results were communicated to the patient's nurse in the ER who stated that the results would be relayed to the admitting clinician. Dictated by... Altaf Harris M.D. THIS IS AN ELECTRONICALLY VERIFIED REPORT Altaf Harris M.D. at 05/13/2017 3:15 PM DINA/jayden TD: 05/13/2017 08:11 JOB #: [id number] MEDICAL IMAGING REPORT [facility]. [facility] A Service of [facility] & [facility] RADIOLOGY TEXT RESULTS PATIENT: NATALIA HENRY LOCATION: [place] [address] : 29 UNIT #: [id number] AGE: [address]: Xiang Ochoa MD SEX: M ORDER DR: Page 1 of 1 COPY
--- NOTE | ~2017-05-12 | CT57 ---
[facility] A Service of [facility] & [facility] RADIOLOGY TEXT RESULTS PATIENT: NATALIA HENRY LOCATION: [address] : 29 UNIT #: [id number] AGE: [address]: Xiang Ochoa MD SEX: M ORDER DR: [id number] [facility] [address] [place], [place] [address] [id number] I MR#: [id number] Acc #: [id number] NAME: NATALIA HENRY. : 1930 SEX: M STUDY DATE/TIME: 05/12/2017 13:03 UNIT: [facility] ROOM: [facility] STUDY DESCRIPTION: CT Chest Wo Cont Attending Physician: Mariana Medrano M.D. Ordering Physician: Earl Mckinley M.D. Primary Care Physician: David Vivas M.D. MEDICAL IMAGING REPORT This report is preliminary unless electronic signature is present EXAM CT chest without contrast. HISTORY 86-year-old male, shortness of air, weakness, cough, pneumonia. Increasing temperature. COMPARISON CT chest, 02/11/2017. TECHNIQUE Axial images performed through the chest without contrast. Multiplanar reconstructed images reviewed at a workstation. This CT exam was performed with one or more of the following radiation dose reduction techniques: automatic exposure control, adjustment of mA and/or kV according to patient size, and iterative reconstruction. FINDINGS Examination demonstrates multiple bilateral lung nodules which are new when compared to the patient's chest CT in February. The largest nodule seen in the right lower lobe measures up to 2.7 cm. There is a 1.6 cm nodule bordering the major fissure in the left upper lobe as well as a 1.4 cm nodule in the left lower lobe. Given the interval development of multiple bilateral noncalcified nodules, these are highly concerning for metastatic disease. This appears superimposed on background emphysema and fibrosis. There is a small right pleural effusion and small left pleural effusion both layering to a depth of less than a centimeter. There is enlargement of the central pulmonary arteries compatible with pulmonary hypertension. Mild aortic atherosclerotic changes as well as a small amount coronary artery calcification. The upper abdomen remarkable for bilateral low-attenuation renal lesions compatible with cysts. Please see separate CT abdomen and pelvis for additional findings. Osseous structures and STS. [facility] A Service of [facility] RADIOLOGY TEXT RESULTS PATIENT: NATALIA HENRY LOCATION: [address] : 29 UNIT #: [id number] AGE: [address]: Xiang Ochoa MD SEX: M ORDER DR: thoracic inlet appear normal. There is a right upper extremity PICC line terminating mid-SVC. Mild cardiomegaly. There are multiple subcutaneous nodules over the posterior chest. These could represent subcutaneous metastases. Correlate clinically. Potentially these could just represent benign subcutaneous lesions such as an epidermal inclusion cyst. These would be amendable to percutaneous sampling. These nodules were present on the patient's previous chest CT and this may support a benign etiology. IMPRESSION 1. Increasing size, number, and conspicuity of bilateral pulmonary nodules. As previously noted, this is highly concerning for metastatic disease. There are also new small bilateral pleural effusions. 2. Background diffuse lung disease with evidence of centrilobular emphysema and basilar fibrosis. No definite acute airspace disease. 3. Cardiomegaly and diffuse aortic and coronary artery atherosclerotic disease. 4. Multiple subcutaneous nodules along the posterior chest. These do not appear significantly changed, could represent a subcutaneous metastases though this is not particularly, and this may just represent benign subcutaneous lesions though is somewhat concerning due to the size and multitude of lesions. These would be amendable to percutaneous sampling. Dictated by... Parish Lindquist M.D. THIS IS AN ELECTRONICALLY VERIFIED REPORT Parish Lindquist M.D. at 05/13/2017 5:19 PM KEVIN/lucas TD: 05/13/2017 04:13 JOB #: [id number] MEDICAL IMAGING REPORT Page 1 of 1 COPY
--- NOTE | ~2017-05-12 | CO ---
Unit #: [id number] #: [id number] Patient: NATALIA HENRY [id number] [address] [place], [place] [address] [id number] I MR#: [id number] NAME: NATALIA HENRY ROOM: [facility] Age: 86 Sex: M Admission Date: 05/12/2017 : 1930 Attending Physician: Xiang Ochoa M.D. Primary Care Physician: David Vivas M.D. Consultation Date: 05/12/2017 CONSULTATION REPORT REASON FOR CONSULTATION Shock, sepsis, pneumonia. HISTORY OF PRESENT ILLNESS Mr. Henry is an 86-year-old gentleman known to our practice who has COPD, chronic respiratory failure with nocturnal oxygen, and obstructive sleep apnea on CPAP. Was last seen by Dr. Jacobs in the summer. He had a CT scan with some fibrotic changes as well as multiple pulmonary nodules. There was some mixup with his office appointment which he missed and is rescheduled for this month. He has had a 15-day history of weakness, shortness of breath, and cough. He was treated with "antibiotics" that he cannot identify without improvement. He has had some mucopurulent sputum. No hemoptysis. No chest pain. He was unaware of any fever at home, but he had a temperature of 102.4 here in the emergency room. He does feel somewhat better now than upon presentation. PAST MEDICAL HISTORY 1. COPD. 2. Chronic respiratory failure with nocturnal oxygen. 3. Obstructive sleep apnea on CPAP. 4. Diabetes. 5. Hypertension. 6. Gastroesophageal reflux. 7. Atrial fibrillation. 8. Chronic kidney disease. 9. Diverticular disease with partial colon resection in the past. HOME MEDICATIONS He is unaware of what inhalers he is on. The EHR lists Advair twice a day. All he told me was albuterol. Other medicines in the EHR include: 1. Flomax. 2. Coumadin. 3. Atenolol. 4. Lasix. 5. Amaryl. ALLERGIES No known medical allergies. SOCIAL HISTORY He stopped smoking 20 or 30 years ago. He did work for the [employer] and states he was around asbestos. He does not drink alcohol. FAMILY HISTORY Unit #: [id number] #: [id number] Patient: NATALIA HENRY No definite familial lung disease. REVIEW OF SYSTEMS He did not complain of any abdominal pain but on exam he had some abdominal tenderness. After that, he did say he has had some intermittent abdominal discomfort but it was mild. No change in bowel movements. Normal bowel movements. No melena, hematochezia, hematemesis, nausea, vomiting. There is no chest pain, palpitations, hematuria, dysuria, focal weakness, paraesthesias, leg pain, swelling. He uses his CPAP faithfully. He uses his oxygen at night. Further review of systems negative. PHYSICAL EXAMINATION GENERAL: Reveals a gentleman who is in no acute distress. VITAL SIGNS: He had a T-max of 102.4, now 97.8. Pulse 80, respiratory rate 26, blood pressure 75/37. HEENT: Pupils equal, round, reactive to light. Sclerae anicteric. Head: Atraumatic. NECK: Supple. No supraclavicular or cervical adenopathy appreciated. He does have increased jugular venous pressures even with elevation of the head of the bed. Mucous membranes are moist. He does have natural teeth. CHEST: Expiratory wheeze. Scattered rhonchi. No definite consolidation. CARDIAC: Reveals distant heart tones. Regular rhythm. Controlled rate. ABDOMEN: Mildly tender but no rebound. It does seem to be protuberant but he states this is normal. EXTREMITIES: No clubbing, cyanosis. No significant edema. No calf tenderness. SKIN: Warm and dry without rash or diaphoresis. NEUROLOGIC: Grossly intact. No focal muscle or sensory deficits. DIAGNOSTIC STUDIES LABORATORY: His BUN 27, creatinine 1.8. In October of this year, his creatinine was 1.1. His BNP has not been checked. INR is 2.4. Cardiac enzymes negative. White blood cell count is 18.5, hemoglobin 11.4, platelet count 191,000. Urinalysis: One plus protein, no significant pyuria. Blood cultures performed and are pending. In the past, sputum revealed gram-positive cocci in clusters and gram-negative rods, grew normal sinai. In the remote past, blood cultures revealed Pseudomonas. IMAGING: Chest x-ray: Possible right lower lobe, right middle lobe infiltrate but he does have a lot of chronic changes. Cannot rule out just chronic changes currently. CARDIOVASCULAR: EKG: Atrial fibrillation. IMPRESSION 1. Shock, likely secondary to sepsis. Suspect pneumonia given his history. Given past cultures and Gram stains, will cover for Pseudomonas and methicillin-resistant Staphylococcus aureus. 2. Abnormal CT of the chest with fibrosis, emphysema and pulmonary nodules in February of this year. 3. Chronic obstructive pulmonary disease with exacerbation with wheezing. 4. Mild abdominal pain, unknown clinical significance. 5. Obstructive sleep apnea on CPAP. 6. Chronic respiratory failure on oxygen at night. 7. Acute respiratory failure requiring 4 L currently. 8. Atrial fibrillation. 9. Acute kidney injury, underlying chronic kidney disease. Unit #: [id number] #: [id number] Patient: NATALIA HENRY 10. Diabetes. PLAN 1. See orders. 2. Broad-spectrum antibiotics. 3. He has received volume resuscitation. It appears that he is fully intravascularly replete given his increased jugular venous pressures. I suspect pressors will be needed. I will check an echocardiogram. 4. Stress steroids. 5. Continue oxygen. 6. Continue CPAP. 7. Once stable, CT scan of the chest, abdomen, and pelvis will be performed without contrast. 8. Will add inhaled steroids and long-acting beta agonist and try to identify exactly what medicines he is on at home. 9. Proton pump inhibition will be initiated. Thank you very much for allowing me to participate in the care of Mr. Henry. Dictated by... Earl Mckinley M.D. SHERWIN/veda TD: 05/13/2017 08:59 JOB #: [id number] CONSULTATION REPORT Page 1 of 1 X Earl Mckinley MD X CONSULTATION REPORT
--- NOTE | ~2017-05-12 | CR72 ---
[facility] A Service of [facility] & [facility] RADIOLOGY TEXT RESULTS PATIENT: NATALIA HENRY LOCATION: [place] [address] : [birth year] UNIT #: [id number] AGE: [address]: Xiang Ochoa MD SEX: M ORDER DR: [id number] [facility] [address] [place], [place] [address] [id number] I MR#: [id number] Acc #: [id number] NAME: NATALIA HENRY : 1930 SEX: M STUDY DATE/TIME: 05/13/2017 4:15 UNIT: [facility] ROOM: [facility] STUDY DESCRIPTION: CR Chest Single View Portable Attending Physician: Xiang Ochoa M.D. Ordering Physician: Earl Mckinley M.D. Primary Care Physician: David Vivas M.D. MEDICAL IMAGING REPORT This report is preliminary unless electronic signature is present EXAM Portable chest INDICATION Respiratory failure for the past day. PROCEDURE Frontal view of the chest. COMPARISON 05/12/2017. FINDINGS Stable cardiomegaly. Increasing right pleural effusion. No pneumothorax. Right approach PICC line is in the mid SVC. IMPRESSION 1. Increasing right effusion. 2. New right approach PICC line is in the mid SVC. No pneumothorax. Dictated by... Charli Gifford M.D. THIS IS AN ELECTRONICALLY VERIFIED REPORT Charli Gifford M.D. at 05/14/2017 9:56 PM HERRERA/edgardo TD: 05/13/2017 11:22 JOB #: [id number] MEDICAL IMAGING REPORT Page 1 of 1 COPY
--- NOTE | ~2017-05-12 | HP ---
Unit #: [id number] #: [id number] Patient: NATALIA HENRY P [id number] [address] [place], [place] [address] [id number] MR#: [id number] NAME: NATALIA HENRY ROOM: Age: 86 Sex: M Admission Date: 05/12/2017 : 1930 Attending Physician: Deshawn Choi M.D. Primary Care Physician: David Vivas M.D. HISTORY AND PHYSICAL CHIEF COMPLAINT Acute hypoxic respiratory failure with COPD exacerbation likely secondary to community-acquired pneumonia. HISTORY OF PRESENT ILLNESS This pleasant, 86-year-old male with COPD, obstructive sleep apnea, AODM, atrial fibrillation, is admitted for respiratory failure. The patient states that he was in his usual state of health until about two weeks prior to admission when he developed a deep cough productive of some purulent sputum. He was placed on a 10-day course of an unknown antibiotic with initial improvement. However, he worsened over the past few days. Last evening he became extremely weak and short of breath with fever, sweats, chills along with wheezing. He presented to this emergency department early this morning with temperature 102.4. His chest x-ray shows no acute disease but the patient's examination is suspicious for an acute pneumonia. In the ER, he was boluses with two liters of normal saline, given Tylenol, Rocephin, Zithromax. Labs are notable for an elevated white blood count and acute kidney injury. Of note, the patient was last admitted to this facility 10/24/[address] scan of the chest. This was repeated in February and is suspicious for possible primarily lung cancer with metastatic disease. PAST MEDICAL HISTORY 1. Previous admissions for community-acquired pneumonia. 2. Nodules noted on CT scan with repeat CT scan in February suspicious for possible lung cancer. 3. AODM. 4. COPD and obstructive sleep apnea on CPAP with three liters of oxygen bled in at night followed by Dr. Jacobs. 5. Essential hypertension. 6. GERD. 7. Atrial fibrillation chronically anticoagulated with a normal LV function on echo 01/2010. 8. BPH. 9. Chronic kidney disease. 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 11. Hernia repair. 12. Left knee surgery. 13. 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 SOCIAL HISTORY The patient lives with his . He has a 50-pack year smoking history Unit #: [id number] #: [id number] Patient: NATALIA HENRY but stopped smoking over 20 years ago. Does not drink alcohol. FAMILY HISTORY Noncontributory given age. ALLERGIES No known drug allergies. HOME MEDICATIONS 1. Flomax 0.4 mg daily. 2. Coumadin 4 mg daily except for 2 mg Tuesdays and . 3. Atenolol 12.5 mg daily. 4. Advair 250/50 mcg one puff b.i.d. 5. Lasix 20 mg daily. 6. Amaryl 2 mg b.i.d. REVIEW OF SYSTEMS Notable for shortness of breath, weakness, fever, sweats, chills, cough, bronchospasm, diabetes, COPD, MARY, hypertension, GERD, atrial fibrillation, BPH, chronic kidney disease, above-mentioned surgeries. All other systems were reviewed and otherwise negative. PHYSICAL EXAMINATION GENERAL APPEARANCE: Pleasant, mildly obese, fatigue-appearing, 86-year-old male who looks younger than stated age. VITAL SIGNS: Temperature 102.4. Pulse 89. Initial respirations were 41. Currently, his respiratory rate is 28. His initial O2 saturation was 87% but now is 93% on oxygen. Blood pressure 117/51. HEENT: Eyes: PERRLA. Extraocular muscles are intact. Pharynx benign. NECK: Supple without adenopathy or thyromegaly. CHEST: Reveals a few crackles at the right base and rhonchi throughout with end expiratory wheeze. CARDIAC: Normal S1, S2 with a soft systolic murmur best heard at the right upper sternal border and at the apex. ABDOMEN: Bowel sounds are present. No hepatosplenomegaly, tenderness or masses. EXTREMITIES: With mild edema. Pedal pulses are diminished. No ulcers on the feet. NEUROLOGIC: The patient is awake, alert, oriented. His cranial nerves are intact. He has equal strength throughout but is quite weak on exam. DIAGNOSTIC STUDIES LABORATORY: Hematocrit is 34.4, which is improved. White blood count is 18.5. Normal MCV, platelet count. INR is 2.4. SMA-12: BUN 27, creatinine 1.7 up from a BUN of 24, creatinine 1.1 in October. Albumin is 3.3. Lactic acid normal. Cardiac markers negative. IMAGING: Chest x-ray: No acute disease. CARDIOVASCULAR: EKG: Atrial fibrillation, rate 72, right axis deviation. Right bundle branch block which was noted previously. ASSESSMENT 1. Likely community-acquired pneumonia with acute hypoxic respiratory failure and COPD exacerbation. 2. Chest CT worrisome for possible lung cancer and mets in February. 3. AODM. 4. Atrial fibrillation, anticoagulated. Unit #: [id number] #: [id number] Patient: NATALIA HENRY 5. BPH. 6. Obstructive sleep apnea. 7. Acute kidney injury. PLAN 1. Rocephin and doxycycline, steroids, bronchodilators and Advair. 2. Sliding scale insulin and Amaryl. 3. Obtain urinalysis. 4. Pulmonary consultation. 5. Recheck labs later today. 6. Florastor. Dictated by Roma Davila M.D. AML/bd TD: 05/12/2017 06:03 JOB #: [id number] HISTORY AND PHYSICAL Page 1 of 1 X Roma Davila MD X HISTORY AND PHYSICAL
--- NOTE | ~2017-05-12 | CR72 ---
[facility] A Service of [facility] & [facility] RADIOLOGY TEXT RESULTS PATIENT: NATALIA HENRY LOCATION: [place] [address] : [birth year] UNIT #: [id number] AGE: [address]: Xiang Ochoa MD SEX: M ORDER DR: [id number] [facility] [address] [place], [place] [address] [id number] I MR#: [id number] #: [id number] NAME: NATALIA HENRY : 1930 SEX: M STUDY DATE/TIME: 05/14/2017 5:40 UNIT: [facility] ROOM: [facility] STUDY DESCRIPTION: CR Chest Single View Portable Attending Physician: Xiang Ochoa M.D. Ordering Physician: Earl Mckinley M.D. Primary Care Physician: David Vivas M.D. MEDICAL IMAGING REPORT This report is preliminary unless electronic signature is present EXAM Portable chest radiograph INDICATION Shortness of breath and COPD for 2 days. FINDINGS Comparison made to prior exam from yesterday. Cardiomegaly is identified. There are alveolar and interstitial infiltrates seen throughout both lungs which have worsened when compared to yesterday's study. Right pleural effusion has increased. There is stable small left pleural effusion. No pneumothorax is seen. Patient has a right PICC line which extends into the superior vena cava as well as an endotracheal tube which terminates above the level of the alaina. Right internal jugular vein catheter terminates within the right innominate vein. Dictated by... Анна Arboleda M.D. THIS IS AN ELECTRONICALLY VERIFIED REPORT Анна Arboleda M.D. at 05/14/2017 2:43 PM AFF/df TD: 05/14/2017 11:30 JOB #: [id number] MEDICAL IMAGING REPORT Page 1 of 1 COPY
--- NOTE | ~2017-05-12 | CR72 ---
[facility] A Service of [facility] & [facility] RADIOLOGY TEXT RESULTS PATIENT: NATALIA HENRY [address]ATION: [address] : [birth year] UNIT #: [id number] AGE: [address]: Xiang Ochoa MD SEX: M ORDER DR: [id number] [facility] [address] [place], [place] [address] [id number] I MR#: [id number] Acc #: [id number] NAME: NATALIA HENRY : 1930 SEX: M STUDY DATE/TIME: 05/15/2017 5:35 UNIT: [facility] ROOM: [facility] STUDY DESCRIPTION: CR Chest Single View Portable Attending Physician: Xiang Ochoa M.D. Ordering Physician: Earl Mckinley M.D. Primary Care Physician: David Vivas M.D. MEDICAL IMAGING REPORT This report is preliminary unless electronic signature is present EXAM Portable AP view of the chest. COMPARISON May 14, 2017, May 13, 2017 at 09:39 p.m. and 10:24 a.m. 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 Dyspnea and respiratory failure requiring ventilatory support for 3 days. History of lung cancer. FINDINGS Exam done by nonstandard positioning. Endotracheal tube is adequately positioned, right internal jugular catheter terminates in the right brachiocephalic vein. Right arm PICC likely grossly stable when allowing for differences in positioning, tip terminating near the cavoatrial junction. There may be increase in size of right pleural effusion, now large, but this may be overestimated due to patient rotation. Otherwise interstitial and alveolar opacities are grossly stable throughout the lungs, likely reflecting edema. There may be increasing small left pleural effusion as well. No evidence of pneumothorax. When allowing for patient rotation there is likely stable mediastinal widening which may be vascular in nature. Dictated by... Bakari Blake M.D. THIS IS AN ELECTRONICALLY VERIFIED REPORT Bakari Blake M.D. at 05/16/2017 8:54 PM BLM/gz TD: 05/15/2017 08:52 [facility] A Service of [facility] & [facility] RADIOLOGY TEXT RESULTS PATIENT: NATALIA HENRY LOCATION: [address] : [birth year] UNIT #: [id number] AGE: [address]: Xiang Ochoa MD SEX: M ORDER DR: JOB #: [id number] MEDICAL IMAGING REPORT Page 1 of 1 COPY
--- NOTE | ~2017-05-12 | A ---
[facility] Nutrition Therapy DATE: 05/14/17 Patient: NATALIA Dsouza ELAINE Physician: ALFONZO Address: [address] Room/Bed: [address], Zip: [place] [address] Admit Date: 05/12/17 Date of : 29 Height: 5 9 Weight: 218 99 NUTRITIONAL ASSESSMENT: REASON: Consult for TPN Admitting dx: 86 y/o male admitted with weakness, SOA with exertion PMH: A-fib, COPD, CRF, AODM, obstructive sleep apnea (CPAP at night), GERD, CKD, BPH, HTN, possible lung CA, colon resection, diverticular disease, PNA, HARINDER Anthropometrics: HT:69" admission WT:90kg CW:99kg BMI:29.2-32.2 Labs: Cl-:115 Gluc:145 BUN:28 Ca++:7.0 Alb:2.1 POC:102-242 Meds: Propofol (9ml/hr), Protonix, novoLOG (med dose), Zofran, Milk of Magnesia, solu-CORTEF, Pulmicort, Lopressor, Versed I/O & Bowel function: BM 05/13 (diarrhea + bleeding), ostomy Skin Integrity: Generalized pedal and abdominal edema, wound vac, G tube Estimated Nutrition Needs: 6913-0903 kcals/day (25-30 kcals/kg admit weight) 90-108 g protein/day (1.0-1.2 g/kg admit weight) Fluids consistent with kcal needs or per MD. Assessment: Chart reviewed, events noted. RD was consulted for TPN recs for pt. 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 Pt has possible lung cancer with mets to the liver and an HARINDER. Pt currently remains intubated & sedated (propofol see below) and is inappropriate for interview. Finance Broker was able to speak to a family member who seemed understanding of TPN and ready to start nutrition support. She reported no further questions at this time. RD to follow hospital course. Dx: Inadequate oral intake r/t current clinical condition, ABD surgery AEB need for TPN, NPO. Intervention: Nutrition support Monitoring, Evaluation and Goals: 1. TPN initiated and consistent with needs (tolerate at goal rate) 2. Improvement in labs; Gluc, Cl-, BUN, Ca++, Alb, K+, PHOS, TGs 3. Promote regular BM's. [facility] Nutrition Therapy DATE: 05/14/17 Patient: NATALIA Dsouza ELAINE Physician: ALFONZO Address: [address] [place] [address] Room/Bed: [address], Zip: [place] [address] Admit Date: 05/12/17 Date of : 29 Height: 5 9 Weight: 218 99 Recommendations: 1. Once medically feasible and enteral access is obtained, begin enteral nutrition support of Vital 1.5 @ 20 ml/hr, advance 10 ml Q 8 hours to goal rate of 60 ml/hr + sedation -Total provides 2398 kcal, 97 g pro, 1094 ml free H20 Add free h20 flushes of 220 ml Q 4 hours to meet pt's current estimated fluid needs or manage per MD 2. If enteral nutrition support not warrented, Start TPN with a standard solution of 25% dextrose, 5% amino acids @ 20 ml/hr. Increase by 10 ml q 12 hours until goal rate of 80 ml/hr is reached. Check triglyceride lab; if triglycerides are < 400 mg/dL cycle 20% 250ml lipids q 72 hrs This TPN regimen will provide the following: -1632 dextrose kcals (GUR:3.7) -96 g protein -238 propofol kcals (9 ml/hr) -Extra 500 calories on lipid days = total 2254 total kcals on non-lipid days / 2754 kcals on lipid days 3. Obtain updated A1C and TGs. 4. MONITOR lytes, GLU daily 5. Once medically feasible, pt extubated and able to tolerat PO intake, advance diet per SUBSTATION MECHANIC + low fiber/GI soft RD will follow hospital course Moderate-severe nutrition risk Respectfully, Jasson Noonan, MS, RD, LD Esperanza Zhong, Chief Psychology Food and Nutritional Services [facility] cc: client file
--- NOTE | ~2017-05-12 | EKG ---
PATIENT: NATALIA HENRY UNIT #: [id number] Ventricular Rate: 145 BPM Atrial Rate: 156 BPM QRS Duration: 122 ms Q-T Interval: 322 ms QTC Calculation(Bezet): 500 ms Calculated R [place]: 94 degrees Calculated T [place]: 33 degrees Diagnosis Line: Atrial fibrillation with rapid ventricular Diagnosis Line: response Diagnosis Line: Right bundle branch block Diagnosis Line: Abnormal ECG Diagnosis Line: When compared with ECG of 12-MAY-2017 03:55, Diagnosis Line: (unconfirmed) Diagnosis Line: Vent. rate has increased BY 73 BPM Diagnosis Line: Right bundle branch block is now Present Diagnosis Line: Criteria for Septal infarct are no longer Present Diagnosis Line: Confirmed by CARLINE SALDAÑA MD ([id number]) on 05/20/2017 Diagnosis Line: 7:22:54 AM INTERPRETING MD: PIPER STRICKLAND
--- NOTE | ~2017-05-12 | CO ---
Unit #: [id number] #: [id number] Patient: NATALIA HENRY [id number] [address] [place], [place] [address] [id number] I MR#: [id number] NAME: NATALIA HENRY ROOM: [facility] Age: 86 Sex: M Admission Date: 05/12/2017 : 1930 Attending Physician: Xiang Ochoa M.D. Primary Care Physician: David Vivas M.D. CONSULTATION REPORT CHIEF COMPLAINT Stage 4 colon cancer, perforation, sepsis. HISTORY OF PRESENT ILLNESS This is an 86-year-old male, who was in excellent health last week. He drove to the track on Thursday. However, on Thursday evening, he developed abdominal discomfort, dizziness, declined performance status. He came to the hospital in the night. He had a CT of the abdomen and pelvis on 05/13/2017. It showed colonic mass, liver mass, lung mass, and perforation. The patient had laparotomy and extensive surgery by Dr. Bazzi on 05/13/2017. Please review the operative report. There was a large mass in the colon extending to the transverse colon. There is significant perforation abscess. CT of the chest showed wide spread disease in the lung. At present, he is confused. He is lethargic. Family is around him. REVIEW OF SYSTEMS CONSTITUTIONAL: No fever, no chills, no sweats, no weight loss. EYES: No visual symptoms. EARS, NOSE AND THROAT: There is no runny nose or sore throat or difficulty hearing. CARDIOVASCULAR: No chest pain. No shortness of breath. No palpitations. No orthopnea. No PND. RESPIRATORY: No cough. No wheezing. No hemoptysis. GASTROINTESTINAL: No nausea, vomiting, diarrhea, constipation, hematochezia or melena. GENITOURINARY: No urinary frequency, hesitancy or urgency. No blood in the urine. MUSCULOSKELETAL: No muscle or joint pain. NEUROLOGIC: No headache. No numbness or tingling. No weakness. No seizure. PSYCHIATRIC: No anxiety, depression or mood disturbance. ENDOCRINE: No excessive urination or thirst. DERMATOLOGIC: No rash or change in the skin. ALLERGIC/IMMUNOLOGIC: No symptoms. HEMATOLOGIC/LYMPHATIC: Denies any symptoms. PAST MEDICAL HISTORY 1. Chronic obstructive pulmonary disease. 2. Hypertension. 3. Diabetes. 4. Atrial fibrillation on Coumadin. 5. Stage 4 colon cancer, metastatic disease to the liver and the lung. ALLERGIES Unit #: [id number] #: [id number] Patient: NATALIA HENRY No known drug allergies. SOCIAL HISTORY He use to smoke but quit twenty years ago, denied alcohol abuse, use to work in [employer], worked at [employer]. FAMILY HISTORY Multiple members of the family has had malignancy. PHYSICAL EXAMINATION GENERAL: Patient is comfortable. ECOG is 0. The patient is pleasant. VITAL SIGNS: Afebrile, pulse 80, respiratory rate 20, and blood pressure 120/70. HEENT: Moist mucosa. Pupils equally reactive to light. Extraocular muscles intact. Sclerae anicteric. No obvious bleeding from nasal mucosa or oral mucosa. Scalp normal. Hearing normal. NECK: No JVD. No lymphadenopathy. LYMPHATIC/HEMATOLOGIC: There is no palpable adenopathy in the neck, axilla or inguinal area. CARDIOVASCULAR: S1, S2. Regular rate and rhythm. No S3 or S4. RESPIRATORY: Chest symmetrical, normal. Clear to auscultation bilaterally. No wheezes, no rales, no rhonchi. No dullness to percussion. ABDOMEN/GASTROINTESTINAL: Abdomen is soft, nontender, nondistended. No hepatosplenomegaly. EXTREMITIES: There is no clubbing, no cyanosis, no edema. No varicose veins. NEUROLOGICAL: Unable to perform because the patient is (1)____ and lethargic. DIAGNOSTIC STUDIES LABORATORY: WBC 14.7, hemoglobin 9.1, platelets 88, creatinine is 1.4, total bili 3.2. IMAGING: CT of the chest, abdomen, and pelvis as mentioned above. ASSESSMENT This is an 86-year-old male, who has stage 4 colon cancer. He has wide spread disease in the liver and the lung. He has perforation. He had surgery. His ECOG is 4. He is probably actively dying. DISCUSSION I had extensive discussion with , who is 89 years old. The patient has two daughters present in the room. At present the best option is to make him comfortable. PLAN The patient is DNR. We will consult Hospice. At present the best option is to do comfort only. Dictated by... Mark Razo M.D. PELON/ed Unit #: [id number] #: [id number] Patient: NATALIA HENRY TD: 05/17/2017 12:09 JOB #: [id number] CONSULTATION REPORT Page 1 of 1 X Mark Razo MD X CONSULTATION REPORT
--- NOTE | ~2017-05-12 | CR72 ---
[facility] A Service of [facility] & [facility] RADIOLOGY TEXT RESULTS PATIENT: NATALIA HENRY LOCATION: [place] [address]-18 : 29 UNIT #: [id number] AGE: [address]: Xiang Ochoa MD SEX: M ORDER DR: [id number] [facility] [address] [place], [place] [address] [id number] I MR#: [id number] Acc #: [id number] NAME: NATALIA HENRY. : 1930 SEX: M STUDY DATE/TIME: 05/16/2017 6:24 UNIT: [facility] ROOM: [facility] STUDY DESCRIPTION: CR Chest Single View Portable Attending Physician: Xiang Ochoa M.D. Ordering Physician: Earl Mckinley M.D. Primary Care Physician: David Vivas M.D. MEDICAL IMAGING REPORT This report is preliminary unless electronic signature is present EXAM Portable chest radiograph INDICATIONS Shortness of breath with exertion starting today. Patient has a history of lung cancer. FINDINGS Comparison made to prior exam from yesterday. Cardiomediastinal silhouette is unchanged as is diffuse interstitial prominence, there are bilateral pleural effusions right greater than left which appear stable when compared to yesterday's study. Right-sided PICC line extends into the superior vena cava. There is also a right jugular vein central venous line which extends into the right innominate vein. There is bibasilar consolidation not significantly changed when compared to yesterday's study. Endotracheal tube has been removed when compared to yesterday's exam Dictated by... Анна Arboleda M.D. THIS IS AN ELECTRONICALLY VERIFIED REPORT Анна Arboleda M.D. at 05/17/2017 1:02 PM AFF/rnr TD: 05/17/2017 01:38 JOB #: [id number] MEDICAL IMAGING REPORT Page 1 of 1 COPY
--- NOTE | ~2017-05-12 | EKG ---
PATIENT: NATALIA HENRY UNIT #: [id number] Ventricular Rate: 72 BPM Atrial Rate: 197 BPM QRS Duration: 122 ms Q-T Interval: 372 ms QTC Calculation(Bezet): 407 ms Calculated R [place]: 148 degrees Diagnosis Line: Diagnosis Line: Atrial fibrillation Diagnosis Line: Right axis deviation Diagnosis Line: Septal infarct , age undetermined Diagnosis Line: Incomplete right bundle branch block Diagnosis Line: Abnormal ECG Diagnosis Line: When compared with ECG of 28-OCT-2016 19:49, Diagnosis Line: Septal infarct is now Present Diagnosis Line: Confirmed by CARLINE SALDAÑA MD ([id number]) on 05/20/2017 Diagnosis Line: 7:22:19 AM INTERPRETING MD: PIPER STRICKLAND
--- NOTE | ~2017-05-12 | CO ---
Unit #: [id number] #: [id number] Patient: NATALIA HENRY P [id number] [address] [place], [place] [address] [id number] I MR#: [id number] NAME: NATALIA HENRY ROOM: [facility] Age: 86 Sex: M Admission Date: 05/12/2017 : 1930 Attending Physician: Xiang Ochoa M.D. Primary Care Physician: David Vivas M.D. Consultation Date: 05/13/2017 CONSULTATION REPORT REASON FOR CONSULTATION Atrial fibrillation with rapid ventricular response. HISTORY OF PRESENT ILLNESS This is a pleasant 86-year-old male, who has been followed with Dr. Samayoa in the past. He has a past medical history of diabetes mellitus; chronic atrial fibrillation, on chronic anticoagulation with Coumadin; obstructive sleep apnea, compliant with CPAP; chronic respiratory failure, on nocturnal oxygen; COPD; gastroesophageal reflux; chronic kidney disease. The patient denies any prior history of hypertension or hyperlipidemia. He denies any known coronary artery disease. The patient does report that he has had several stress tests in the past that have been reportedly normal. The patient tells me he has been sick a few weeks ago and was being treated with antibiotics. He reports he felt some better, but then yesterday he was at home and became weak with increasing shortness of breath. He does report a productive cough. Denies any fever at home. He also denies any complaints of palpitations, chest pain or pressure, or syncopal episodes. The called EMS and he was brought in for evaluation. In the emergency room, his temperature was noted to be 102.4. Chest x-ray shows possible pneumonia. Lactic acid initially was 2.4. White blood cell count was 18.5 with a left shift present. Blood cultures are pending. ABG was performed, which showed respiratory acidosis. The patient was placed on BiPAP in the emergency room. He also had some troubles with low blood pressures in the ER and was given multiple fluid boluses, Tylenol, and started on empiric antibiotic therapy. Of note, also CT of the chest was performed, which showed multiple nodules concerning for metastatic disease as well as small right and left pleural effusion. There was also evidence of centrilobular emphysema noted. He also had CT of the abdomen and pelvis which showed a thin collection of free air along the hernia repair mesh of questionable etiology, and thickening of a transverse colon. Perforated diverticula are not excluded. This also noted a decreased attenuation in the pancreatic head. CT shows there is an area measuring 3.7 x 2.8 cm in the pancreatic head region. Pancreatic mass cannot be completely excluded. We were asked to see the patient today secondary to development of atrial fibrillation with rapid ventricular response. EKG was performed, which showed rate of 145 beats per minute, right bundle-branch block, and a QTc interval of 500 msec. Troponin was 0.03. At present, he is denying any complaints of chest pain. He is short of breath, but states he is feeling Unit #: [id number] #: [id number] Patient: NATALIA HENRY some better, currently on BiPAP mask. Blood pressure is currently 100/60. His primary complaint is that of abdominal pain. Pulmonology and the surgical team are on board and also evaluating and managing this patient. PAST MEDICAL HISTORY 1. Diabetes mellitus. 2. COPD. 3. Chronic respiratory failure, on nocturnal oxygen. 4. Gastroesophageal reflux disease. 5. Chronic atrial fibrillation, on anticoagulation with Coumadin. 6. Obstructive sleep apnea. 7. BPH. 8. Chronic kidney disease. 9. Aneurysmal dilation of the thoracic aorta. 10. Stress test in the past which were reportedly normal. I have no records at this time. 11. Chronic right bundle-branch block. 12. 2D echocardiogram in 07/2010 shows normal left ventricular systolic function, mild dilation of the right ventricle. Left atrium is mild to moderately dilated. Mitral valve leaflets are thickened, but opened well. Mild to moderate mitral annular calcification. No significant mitral valve stenosis. Mild MR, mild TR. Aortic leaflets are sclerotic without stenosis. PAST SURGICAL HISTORY 1. Hernia repair. 2. Left knee surgery. 3. 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 SOCIAL HISTORY The patient lives with his . 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 He is a reformed smoker. He quit approximately 30 years ago. He denies illicit drugs or alcohol. FAMILY HISTORY Negative for any coronary artery disease. ALLERGIES No known drug allergies. HOME MEDICATIONS Coumadin 4 mg daily except Thursday and he takes 2 mg; Breo Ellipta 100/25 one inhalation b.i.d.; Flomax 0.4 mg p.o. daily; Tenormin 12.5 mg p.o. daily; Amaryl 2 mg p.o. b.i.d.; Lasix 20 mg p.o. daily. REVIEW OF SYSTEMS Completed and was negative except for what is stated above in the history of present illness. PHYSICAL EXAMINATION GENERAL APPEARANCE: This is a pleasant 86-year-old male, seen in the ICU, currently on BiPAP, in no acute distress. VITAL SIGNS: Temperature 97.8, respiratory rate 20, pulse is 120, blood pressure 100/60. HEENT: Head is atraumatic and normocephalic. Pupils are equal and round. Mucous membranes are not visualized as the patient is currently on BiPAP mask. NECK: Trachea is midline. No JVD or lymphadenopathy. Carotid upstrokes Unit #: [id number] #: [id number] Patient: ELAINE,NATALIA P are normal. No bruits. CHEST: Fine rales and rhonchi are noted in bilateral lungs. ABDOMEN: Distended, obese. Bowel sounds are present. Tender to palpation. CARDIOVASCULAR: S1, S2. Irregularly irregular. Grade 1/6 systolic murmur best auscultated at the right upper sternal border. No gallops. EXTREMITIES: Lower extremities; pulses are palpable. 1+ bilateral lower extremity edema is noted. No clubbing or cyanosis. NEUROLOGIC: He is awake, alert, and oriented. He moves extremities equally. He follows commands with ease. DIAGNOSTIC STUDIES LABORATORY RESULTS: PT 26.2, INR 2.4. D-dimer is 3048. Initial lactic acid was 2.4. WBCs were elevated at 18.5 with a left shift present. Blood cultures are pending. Glucose 245, BUN 25, creatinine 1.2, sodium 140, potassium 4.1, chloride 109, CO2 of 25, magnesium 1.9. Troponin has been negative. BNP was 423. CARDIOVASCULAR STUDIES: EKG shows atrial fibrillation with rapid ventricular response, rate of 145 beats per minute. Right bundle branch block is present. QTc interval of [address] changes are noted. IMAGING STUDIES: Chest x-ray appears consistent with pulmonary edema. CT of the chest shows increasing size, number, and conspicuity of bilateral pulmonary nodules highly concerning for metastatic disease. There are also new small bilateral pleural effusion. Background lungs; diffuse lung disease with evidence of centrilobular emphysema and right basilar fibrosis. Cardiomegaly and diffuse aortic and coronary artery atherosclerotic disease. Multiple subcu nodules along the posterior chest. These do not appear significantly changed. Could represent subcutaneous metastasis, though this is not particularly and this may just represent benign subcu lesion. Though, it is somewhat concerning due to the size and multitude should be amenable to percutaneous sampling. CT of the abdomen and pelvis shows a questionable area of decreased attenuation in the head of the pancreas measuring 3.7 x 2.8 cm, pancreatic mass is not completely excluded on this unenhanced exam. Cholelithiasis is noted. Numerous bilateral renal cysts are noted. Do not appear significantly changed from prior CT and pelvis on 07/12/2010. There was a thin area of free air along the hernia repair mesh, etiology is unknown, but there is somewhat thickened loop of transverse colon along the left margin of hernia repair. There is also diverticulosis of the transverse colon, perforated diverticulum is not excluded. IMPRESSION 1. Pulmonary edema, questionably related to coronary artery disease. 2. Wopj-mw-svkeirkf aortic stenosis. 3. LVEF of 55%. 4. Permanent atrial fibrillation with now rapid ventricular response, on chronic anticoagulation with Coumadin. 5. Chronic kidney disease. Unit #: [id number] #: [id number] Patient: NATALIA HENRY 6. Hypoxic respiratory failure. 7. Questionable mass in the pancreatic head. 8. 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 9. History of partial colectomy. 10. Obstructive sleep apnea, on CPAP. 11. Chronic obstructive pulmonary disease, on nocturnal oxygen therapy. PLAN 1. At this time, we will plan on diuresing the patient. He will be given Lasix IV. With diuresis, the heart rate should improve. If not, we will increase beta-tj dosing. We will correct anticoagulation with FFP. Could consider waiting on abdominal surgery until his pulmonary status improves; however, the patient's condition deteriorate, then the need for exploratory laparotomy may be indicated. 2. Once the patient's condition stabilizes, at a later date, he may need ischemic evaluation with left heart catheterization. The patient may also need initiation of pressors if his condition deteriorates. Dictated by... Jose Armando Ramírez.P.RRosalina. for Zeinab Drew/yesesnia TD: 05/14/2017 18:29 JOB #: [id number] CONSULTATION REPORT Page 1 of 1 X Angelia Parks APRN CONSULTATION REPORT
--- NOTE | ~2017-05-12 | CR72 ---
[facility] A Service of [facility] & [facility] RADIOLOGY TEXT RESULTS PATIENT: NATALIA HENRY LOCATION: [place] [address] : [birth year] UNIT #: [id number] AGE: [address]: Xiang Ochoa MD SEX: M ORDER DR: [id number] [facility] [address] [facility]. [place], [place] [address] [id number] I MR#: [id number] #: [id number] NAME: NATALIA HENRY : 1930 SEX: M STUDY DATE/TIME: 05/13/2017 7:24 UNIT: [facility] ROOM: [facility] STUDY DESCRIPTION: CR Chest Single View Portable Attending Physician: Xiang Ochoa M.D. Ordering Physician: Xiang Ochoa M.D. Primary Care Physician: David Vivas M.D. MEDICAL IMAGING REPORT This report is preliminary unless electronic signature is present EXAM Portable chest 05/13/2017 INDICATION Respiratory distress and shortness of air today. FINDINGS AP portable chest is compared 05/13/2017 at 4:15 hours. Cardiomegaly is stable. Right pleural effusion and right lung infiltrates are not significantly changed since earlier this morning. Underlying pulmonary nodules are again seen on the left. No pneumothorax. Dictated by... Deshawn Reis Jr., M.D. THIS IS AN ELECTRONICALLY VERIFIED REPORT Deshawn Reis Jr., M.D. at 05/13/2017 3:38 PM GILBERT/edgardo TD: 05/13/2017 13:45 JOB #: [id number] MEDICAL IMAGING REPORT Page 1 of 1 COPY
--- NOTE | ~2017-05-12 | OR ---
Unit #: [id number] #: [id number] Patient: NATALIA HENRY P [id number] [address] [place], [place] [address] [id number] I MR#: [id number] NAME: NATALIA HENRY ROOM: [facility] Date of Procedure: 05/13/2017 Admission Date: 05/12/2017 Surgeon: Deshawn Bazzi M.D. : 1930 Attending Physician: Xiang Ochoa M.D. Primary Care Physician: David Vivas M.D. OPERATIVE REPORT PREOPERATIVE DIAGNOSIS Perforated colon with intraperitoneal sepsis. POSTOPERATIVE DIAGNOSIS Perforated colon with intraperitoneal sepsis. PROCEDURES PERFORMED Exploratory laparotomy, transverse colectomy with end-colostomy formation and Eric pouch formation. Removal of infected abdominal wall mesh. Gastrostomy tube placement. ANESTHESIA General endotracheal anesthesia. ESTIMATED BLOOD LOSS 500 mL. INDICATIONS FOR PROCEDURE Mr. Sanches is an 86-year-old gentleman with multiple comorbid conditions, who presented to the emergency room with weakness and shortness of breath and was admitted with presumed pneumonia. During his evaluation, a CT of the abdomen showed some air around some previously placed intraperitoneal abdominal wall mesh. He was hemodynamically stable. His lactic acid was 1.5 and he was started on antibiotics and a repeat CT scan with contrast was obtained, which showed probable perforated transverse colon with increasing free fluid in the abdomen and free air. After discussion of the risks, benefits, complications, and high risk nature of the procedure, the patient wanted to proceed with surgery. Family was in agreement. DESCRIPTION OF PROCEDURE The patient was transported from the intensive care unit to the operating room, and after induction of general endotracheal anesthesia, a triple-lumen central line and an arterial line were placed by Anesthesia. He already had a Weber catheter and a nasogastric tube was placed. His abdominal wall was clipped of hair and he was then prepped and draped in usual sterile fashion. A midline incision was made, I dissected down through the soft tissue, and I entered the peritoneal cavity above the previously placed mesh. I then took adhesions down and divided the mesh using curved Fall scissors. Once I entered the peritoneal cavity, there was purulent fluid and cultures were taken. In the upper midline, the colon was adherent to the mesh and there were loops of bowel adherent to this area. As I took down the loops of small bowel, there was a great Unit #: [id number] #: [id number] Patient: NATALIA HENRY deal of inflammatory exudate and there were some interloop abscesses which were suctioned and drained. Once I had cleared all the small bowel away from the area, I mobilized the colon proximal and distal to the area of adherence to the mesh and then I dissected this down and he had a mass consistent with malignancy that had eroded through the transverse colon wall and was adherent to the mesh and contaminating the mesh. I mobilized the colon proximal and distal and divided the proximal transverse colon with a ELBA stapler and then divided the rectosigmoid colon in the left lower quadrant. I sequentially clamped, divided, and ligated the mesentery of the remainder of the bowel which was shortened from previous resection 20 years ago and removed the affected portion of the bowel. I then irrigated and obtained hemostasis. The cecum was identified and the small bowel was run from the ileocecal valve to the ligament of Treitz. Multiple adhesions were taken down in areas of inflammatory exudate and interloop abscess were , debrided, and irrigated. I then entered the lesser sac and palpated the head of the pancreas and I could not appreciate a mass. The liver surface was palpated and I could not appreciate any metastatic disease. The gallbladder was distended, but there were no palpable stones. At this point, I copiously irrigated the peritoneal cavity with sterile saline and the saline was coming back clear, I ensured there was good hemostasis. In the right upper quadrant, a stoma was created and the proximal colon was brought out for a colostomy formation. I then took down all the abdominal wall mesh. It was all intraperitoneal and it was sharply dissected away from the underlying peritoneum and fascia, all the mesh was removed. I ensured there was adequate hemostasis of the abdominal wall. After I was assured there was hemostasis, I again looked at the pancreatic head, there was some mild oozing so some FloSeal was placed to effect hemostasis. In the anterior gastric wall a 2-0 silk sutures in a pursestring formation were placed. A gastrotomy was made and then through a separate stab incision, left upper quadrant, a Weber catheter with the 30 mL balloon was placed into the lumen of the stomach and blown up. I then formed a Lisa gastrostomy. The nasogastric tube was removed. I then closed the midline fascia with #1 Vicryl closely spaced interrupted sutures. Once the fascia was closed, I irrigated the soft tissue with saline and Betadine. The skin was loosely approximated with sterile skin nuria. After the anterior abdominal wall was cleaned and the G-tube was placed to gravity drainage. A Prevena incision VAC device was placed over the midline incision. The proximal colon was then opened and matured with 3-0 Vicryl interrupted sutures and an ostomy bag was placed. The Prevena device was then placed to suction. Sponges and needle counts were correct x3. The patient was transported to recovery in stable condition. Laboratories and x-rays are pending. Findings were discussed with the family. Dictated by... Zeinab Muñoz/yessenia TD: 05/14/2017 17:13 JOB #: [id number] Unit #: [id number] #: [id number] Patient: NATALIA HENRY OPERATIVE REPORT Page 1 of 1 X Deshawn Bazzi MD PROCEDURE OPERATIVE NOTE
--- NOTE | ~2017-05-12 | CR7 ---
[facility] A Service of [facility] & [facility] RADIOLOGY TEXT RESULTS PATIENT: NATALIA HENRY LOCATION: [place] [address] : [birth year] UNIT #: [id number] AGE: [address]: Xiang Ochoa MD SEX: M ORDER DR: [id number] [facility] [address] [facility]. [place], [place] [address] [id number] I MR#: [id number] #: [id number] NAME: NATALIA HENRY : 1930 SEX: M STUDY DATE/TIME: 05/14/2017 5:43 UNIT: [facility] ROOM: [facility] STUDY DESCRIPTION: CR Abdomen Single AP View Attending Physician: Xiang Ochoa M.D. Ordering Physician: Earl Mckinley M.D. Primary Care Physician: David Vivas M.D. MEDICAL IMAGING REPORT This report is preliminary unless electronic signature is present KUB INDICATIONS Distention since May 12, 2017. FINDINGS Comparison made to prior exam from May 13, 2017. Since prior examination, this patient has undergone laparotomy. There is gaseous distention of multiple loops of bowel although it is relatively mild, which is favored to represent some adynamic ileus. There are some lucencies which appear to be extraluminal and I think probably reflect some free air, but again the patient is status post laparotomy. Dictated by... Анна Arboleda M.D. THIS IS AN ELECTRONICALLY VERIFIED REPORT Анна Arboleda M.D. at 05/14/2017 2:42 PM AFF/pc TD: 05/14/2017 11:33 JOB #: [id number] MEDICAL IMAGING REPORT Page 1 of 1 COPY
[~2017-05-12 03:09] MED LIST changes: -AMARYL2 MG PO; -TENORMIN25 MG PO
[2017-05-12] MEDS ORDERED: COUMADIN4 MG PO (03:44)
[2017-05-12] MEDS ORDERED: FLOMAX0.4 M1 PO (03:45)
[2017-05-12] MEDS ORDERED: LASIX20 MG PO (03:45)
[2017-05-12] MEDS ORDERED: TENORMIN25 MG PO (03:45)
[2017-05-12] MEDS ORDERED: AMARYL2 MG PO (03:45)
[2017-05-12] MEDS ORDERED: BREO ELLIPTA 11 EACH INH (03:45)
[2017-05-12 04:02] LABS: POC - CKMB 1.3 ng/mL (0.0-7.9); POC - TROPONIN <0.05 ng/mL (<=0.05)
[2017-05-12 04:12] LABS: HEMATOCRIT 34.4 % (38.0-50.0); HEMOGLOBIN 11.1 gm/dL (13.0-16.0); LYMPHOCYTE# 1.8 X10e3 (1.0-3.5); LYMPHOCYTE% 9.9 % (17.0-45.0); MEAN CELL VOLUME 89.8 FL (83-96); MEAN CORPUSCULAR HEMOGLOBIN 28.9 PG (28-34); MEAN CORPUSCULAR HGB CONC 32.2 g/dL (30-36); MONOCYTE# 2.1 X10e3 (0-1.0); MONOCYTE% 11.4 % (3.0-12.0); NEUTROPHIL# 14.5 X10e3 (1.5-7.1); NEUTROPHIL% 78.7 % (40-75); PLATELET COUNT 191 X10e3 (140-420); RED BLOOD COUNT 3.83 X10e (3.90-5.60); WHITE BLOOD COUNT 18.5 X10e3 (4.0-10.5)
[2017-05-12 04:15] LABS: DIFF IND YES
[2017-05-12 04:21] LABS: INR 2.4; PARTIAL THROMBOPLASTIN TIME 35.5 SECONDS (23.5-31.3); PROTHROMBIN TIME (PATIENT) 26.5 SECONDS (10.0-11.7)
[2017-05-12 04:31] LABS: ALBUMIN SERUM 3.3 g/dL (3.5-5.0); BILIRUBIN, DIRECT 0.3 mg/dL (0.0-0.2); BILIRUBIN,INDIRECT 0.5 mg/dL (0.0-0.9); BILIRUBIN,TOTAL 0.8 mg/dL (0.2-2.0); BUN/CREATININE RATIO 15.88; CALCIUM SERUM 8.6 mg/dL (8.4-10.2); CREATININE SERUM 1.7 mg/dL (0.6-1.4); GLOM FILT RATE Estimated 35.5 mL/min (>60); PLATELET ESTIMATE DECREASED (NORMAL); POTASSIUM 3.8 mmol/L (3.5-5.1); PROTEIN TOTAL SERUM 6.8 g/dL (6.0-8.3)
[2017-05-12 04:32] LABS: OVALOCYTES PRESENT; POIKILOCYTOSIS SL; STOMATOCYTE PRESENT
[2017-05-12 06:20] LABS: URINE SOURCE CLEAN CATCH
[2017-05-12 06:25] LABS: URINE APPEARANCE CLEAR; URINE BILIRUBIN NEG (NEG); URINE BLOOD TRACE (NEG); URINE COLOR YELLOW; URINE GLUCOSE NEG (NEG); URINE KETONE NEG (NEG); URINE LEUKOCYTE ESTERASE NEG (NEG); URINE NITRATE NEG (NEG); URINE PROTEIN 1+ (NEG); URINE SPECIFIC GRAVITY 1.018 (1.003-1.035); URINE UROBILINOGEN 0.2 MG/DL (NEG)
[2017-05-12 06:27] LABS: CULTURE INDICATED? NO; URBCS1 AUWI 0-2 /[HPF] (0-2); URINE BACTERIA AUWI NEG (NEGATIVE); URINE SQUAMOUS EPITHELIAL CELL NONE SEEN /[HPF]; UWBCS1 AUWI 0-2 (0-5)
[2017-05-12 07:22] LABS: CALCIUM SERUM 7.6 mg/dL (8.4-10.2); CREATININE SERUM 1.8 mg/dL (0.6-1.4); GLOM FILT RATE Estimated 33.1 mL/min (>60); POTASSIUM 3.5 mmol/L (3.5-5.1)
[2017-05-12 09:59] LABS: LEGIONELLA AG URINE NEG (NEG)
[2017-05-13 04:00] LABS: HEMATOCRIT 28.3 % (38.0-50.0); HEMOGLOBIN 9.2 gm/dL (13.0-16.0); MEAN CELL VOLUME 90.4 FL (83-96); MEAN CORPUSCULAR HEMOGLOBIN 29.3 PG (28-34); MEAN CORPUSCULAR HGB CONC 32.4 g/dL (30-36); MEAN PLATELET VOLUME 8.8 FL (6.5-11.5); RED BLOOD COUNT 3.13 X10e (3.90-5.60); RED CELL DISTRIBUTION WIDTH 19.4 % (11.0-15.5); WHITE BLOOD COUNT 23.5 X10e3 (4.0-10.5)
[2017-05-13 04:24] LABS: ALBUMIN SERUM 2.6 g/dL (3.5-5.0); BUN/CREATININE RATIO 20.83; CALCIUM SERUM 7.7 mg/dL (8.4-10.2); CREATININE SERUM 1.2 mg/dL (0.6-1.4); GLOM FILT RATE Estimated 54.1 mL/min (>60); POTASSIUM 4.1 mmol/L (3.5-5.1); PROTEIN TOTAL SERUM 5.6 g/dL (6.0-8.3)
[2017-05-13 07:12] LABS: ARTERIAL BLD GAS O2 SATURATION 85.8 % (90.0-100.0); ARTERIAL BLOOD GAS HCO3 22.7 mmol/L; ARTERIAL BLOOD GAS MET HB 1.1 %sat (0.0-2.0); ARTERIAL BLOOD GAS pH 7.233 (7.350-7.450)
[2017-05-13 07:13] LABS: ARTERIAL BLOOD GAS ART SITE RIGHT RADIAL; ARTERIAL BLOOD GAS DELIVERY OXYMIZER; ARTERIAL BLOOD GAS PCO2 53.8 mmHg (35.0-45.0); ARTERIAL BLOOD GAS PO2 60.8 mmHg (80.0-100); ARTERIAL DRAW? YES
[2017-05-13 08:01] LABS: MAGNESIUM 1.8 mg/dL (1.6-3.0)
[2017-05-13 08:19] LABS: %MB 5.8 % (0.0-4.0); MB 5.1 ng/ml; PROCALCITONIN 1.84 NG/ML
[2017-05-13 08:46] LABS: INR 2.4; PARTIAL THROMBOPLASTIN TIME 36.9 SECONDS (23.5-31.3); PROTHROMBIN TIME (PATIENT) 26.2 SECONDS (10.0-11.7)
[2017-05-13 10:06] LABS: ARTERIAL BLD GAS O2 SATURATION 96.7 % (90.0-100.0); ARTERIAL BLOOD GAS CARBOXY HB 1.1 %sat (0.0-9.0); ARTERIAL BLOOD GAS HCO3 24.5 mmol/L; ARTERIAL BLOOD GAS MET HB 0.9 %sat (0.0-2.0); ARTERIAL BLOOD GAS pH 7.374 (7.350-7.450)
[2017-05-13 10:07] LABS: ARTERIAL BLOOD GAS ART SITE LEFT RADIAL; ARTERIAL BLOOD GAS DELIVERY BIPAP 16/6; ARTERIAL DRAW? YES
[2017-05-13 21:00] LABS: ARTERIAL BLD GAS O2 SATURATION 98.1 % (90.0-100.0); ARTERIAL BLOOD GAS ART SITE ARTERIAL LINE; ARTERIAL BLOOD GAS CARBOXY HB 0.8 %sat (0.0-9.0); ARTERIAL BLOOD GAS DELIVERY VENT; ARTERIAL BLOOD GAS HCO3 21.3 mmol/L; ARTERIAL BLOOD GAS MET HB 0.8 %sat (0.0-2.0); ARTERIAL BLOOD GAS VENT MODE AC; ARTERIAL DRAW? YES
[2017-05-13 21:29] LABS: BASOPHIL% 0.1 % (0-2.5); HEMATOCRIT 31.7 % (38.0-50.0); HEMOGLOBIN 10.2 gm/dL (13.0-16.0); LYMPHOCYTE# 0.5 X10e3 (1.0-3.5); LYMPHOCYTE% 4.4 % (17.0-45.0); MEAN CELL VOLUME 91.6 FL (83-96); MEAN CORPUSCULAR HEMOGLOBIN 29.4 PG (28-34); MEAN CORPUSCULAR HGB CONC 32.1 g/dL (30-36); MEAN PLATELET VOLUME 9.1 FL (6.5-11.5); MONOCYTE# 0.8 X10e3 (0-1.0); MONOCYTE% 6.9 % (3.0-12.0); NEUTROPHIL# 10.2 X10e3 (1.5-7.1); NEUTROPHIL% 88.6 % (40-75); PLATELET COUNT 136 X10e3 (140-420); RED BLOOD COUNT 3.46 X10e (3.90-5.60); RED CELL DISTRIBUTION WIDTH 18.9 % (11.0-15.5)
[2017-05-13 21:30] LABS: DIFF IND NO; WHITE BLOOD COUNT 11.5 X10e3 (4.0-10.5)
[2017-05-13 21:49] LABS: PROTHROMBIN TIME (PATIENT) 21.5 SECONDS (10.0-11.7)
[2017-05-13 21:51] LABS: ALBUMIN SERUM 2.2 g/dL (3.5-5.0); BILIRUBIN,TOTAL 1.6 mg/dL (0.2-2.0); BUN/CREATININE RATIO 18.57; CALCIUM SERUM 6.7 mg/dL (8.4-10.2); CREATININE SERUM 1.4 mg/dL (0.6-1.4); GLOM FILT RATE Estimated 44.9 mL/min (>60); MAGNESIUM 1.9 mg/dL (1.6-3.0); PHOSPHOROUS 3.1 mg/dL (2.5-4.6); POTASSIUM 4.1 mmol/L (3.5-5.1)
[2017-05-14 03:49] LABS: ARTERIAL BLD GAS O2 SATURATION 97.6 % (90.0-100.0); ARTERIAL BLOOD GAS CARBOXY HB 0.8 %sat (0.0-9.0); ARTERIAL BLOOD GAS HCO3 21.6 mmol/L; ARTERIAL BLOOD GAS MET HB 0.9 %sat (0.0-2.0); ARTERIAL BLOOD GAS pH 7.206 (7.350-7.450)
[2017-05-14 03:53] LABS: ARTERIAL BLOOD GAS PCO2 54.4 mmHg (35.0-45.0)
[2017-05-14 03:54] LABS: ARTERIAL BLOOD GAS ART SITE ARTERIAL LINE; ARTERIAL BLOOD GAS DELIVERY VENT; ARTERIAL BLOOD GAS VENT MODE AC; ARTERIAL DRAW? YES
[2017-05-14 05:19] LABS: INR 2.3; PARTIAL THROMBOPLASTIN TIME 43.2 SECONDS (23.5-31.3); PROTHROMBIN TIME (PATIENT) 25.1 SECONDS (10.0-11.7)
[2017-05-14 05:29] LABS: HEMATOCRIT 31.6 % (38.0-50.0); LYMPHOCYTE# 0.5 X10e3 (1.0-3.5); LYMPHOCYTE% 3.2 % (17.0-45.0); MEAN CELL VOLUME 91.7 FL (83-96); MEAN CORPUSCULAR HEMOGLOBIN 29.1 PG (28-34); MEAN CORPUSCULAR HGB CONC 31.8 g/dL (30-36); MEAN PLATELET VOLUME 9.3 FL (6.5-11.5); MONOCYTE# 0.9 X10e3 (0-1.0); MONOCYTE% 5.8 % (3.0-12.0); NEUTROPHIL# 14.2 X10e3 (1.5-7.1); PLATELET COUNT 157 X10e3 (140-420); RED BLOOD COUNT 3.45 X10e (3.90-5.60); RED CELL DISTRIBUTION WIDTH 19.1 % (11.0-15.5); WHITE BLOOD COUNT 15.6 X10e3 (4.0-10.5)
[2017-05-14 05:37] LABS: DIFF IND YES
[2017-05-14 05:59] LABS: ALBUMIN SERUM 2.1 g/dL (3.5-5.0); CREATININE SERUM 1.4 mg/dL (0.6-1.4); GLOM FILT RATE Estimated 44.9 mL/min (>60); PHOSPHOROUS 3.5 mg/dL (2.5-4.6); POTASSIUM 4.5 mmol/L (3.5-5.1)
[2017-05-14 06:42] LABS: ANISOCYTOSIS SL; OVALOCYTES PRESENT
[2017-05-14 06:43] LABS: PLATELET ESTIMATE NORMAL (NORMAL); POIKILOCYTOSIS SL
[2017-05-15 05:39] LABS: BASOPHIL% 0.2 % (0-2.5); HEMATOCRIT 25.8 % (38.0-50.0); HEMOGLOBIN 8.6 gm/dL (13.0-16.0); LYMPHOCYTE# 0.4 X10e3 (1.0-3.5); LYMPHOCYTE% 3.1 % (17.0-45.0); MEAN CORPUSCULAR HEMOGLOBIN 29.9 PG (28-34); MEAN CORPUSCULAR HGB CONC 33.2 g/dL (30-36); MEAN PLATELET VOLUME 9.6 FL (6.5-11.5); MONOCYTE% 7.9 % (3.0-12.0); NEUTROPHIL# 11.2 X10e3 (1.5-7.1); NEUTROPHIL% 88.8 % (40-75); PLATELET COUNT 111 X10e3 (140-420); RED BLOOD COUNT 2.86 X10e (3.90-5.60); RED CELL DISTRIBUTION WIDTH 19.4 % (11.0-15.5); WHITE BLOOD COUNT 12.6 X10e3 (4.0-10.5)
[2017-05-15 05:50] LABS: DIFF IND NO
[2017-05-15 05:55] LABS: INR 2.5; PARTIAL THROMBOPLASTIN TIME 54.4 SECONDS (23.5-31.3); PROTHROMBIN TIME (PATIENT) 27.5 SECONDS (10.0-11.7)
[2017-05-15 07:40] LABS: ALBUMIN SERUM 1.8 g/dL (3.5-5.0); BILIRUBIN,TOTAL 2.7 mg/dL (0.2-2.0); BUN/CREATININE RATIO 23.33; CALCIUM SERUM 7.2 mg/dL (8.4-10.2); CREATININE SERUM 1.2 mg/dL (0.6-1.4); GLOM FILT RATE Estimated 54.1 mL/min (>60); MAGNESIUM 1.8 mg/dL (1.6-3.0); PHOSPHOROUS 2.1 mg/dL (2.5-4.6); POTASSIUM 3.9 mmol/L (3.5-5.1); PROTEIN TOTAL SERUM 4.6 g/dL (6.0-8.3)
[2017-05-15 08:39] LABS: ARTERIAL BLOOD GAS CARBOXY HB 0.9 %sat (0.0-9.0); ARTERIAL BLOOD GAS HCO3 20.4 mmol/L; ARTERIAL BLOOD GAS MET HB 0.9 %sat (0.0-2.0); ARTERIAL BLOOD GAS PCO2 38.8 mmHg (35.0-45.0); ARTERIAL BLOOD GAS pH 7.328 (7.350-7.450)
[2017-05-15 08:40] LABS: ARTERIAL BLOOD GAS ART SITE ARTERIAL LINE; ARTERIAL BLOOD GAS DELIVERY VENT; ARTERIAL BLOOD GAS PO2 72.5 mmHg (80.0-100); ARTERIAL BLOOD GAS VENT MODE CPAP; ARTERIAL DRAW? YES
[2017-05-15 10:10] LABS: ARTERIAL BLD GAS O2 SATURATION 91.5 % (90.0-100.0); ARTERIAL BLOOD GAS HCO3 21.3 mmol/L; ARTERIAL BLOOD GAS PO2 68.7 mmHg (80.0-100); ARTERIAL BLOOD GAS pH 7.304 (7.350-7.450)
[2017-05-15 10:11] LABS: ARTERIAL BLOOD GAS ART SITE ARTERIAL LINE; ARTERIAL BLOOD GAS DELIVERY NASAL CANNULA; ARTERIAL DRAW? YES
[2017-05-16 04:33] LABS: ARTERIAL BLOOD GAS CARBOXY HB 1.2 %sat (0.0-9.0); ARTERIAL BLOOD GAS HCO3 26.5 mmol/L; ARTERIAL BLOOD GAS MET HB 0.6 %sat (0.0-2.0); ARTERIAL BLOOD GAS pH 7.318 (7.350-7.450)
[2017-05-16 04:34] LABS: ARTERIAL BLOOD GAS ART SITE ARTERIAL LINE; ARTERIAL BLOOD GAS DELIVERY NASAL CANNULA; ARTERIAL BLOOD GAS PCO2 51.8 mmHg (35.0-45.0); ARTERIAL BLOOD GAS PO2 78.6 mmHg (80.0-100); ARTERIAL DRAW? YES
[2017-05-16 05:50] LABS: BASOPHIL% 0.2 % (0-2.5); HEMATOCRIT 27.8 % (38.0-50.0); HEMOGLOBIN 9.1 gm/dL (13.0-16.0); LYMPHOCYTE# 0.4 X10e3 (1.0-3.5); LYMPHOCYTE% 2.6 % (17.0-45.0); MEAN CELL VOLUME 89.5 FL (83-96); MEAN CORPUSCULAR HEMOGLOBIN 29.2 PG (28-34); MEAN CORPUSCULAR HGB CONC 32.6 g/dL (30-36); MEAN PLATELET VOLUME 10.1 FL (6.5-11.5); MONOCYTE# 0.8 X10e3 (0-1.0); MONOCYTE% 5.7 % (3.0-12.0); NEUTROPHIL# 13.3 X10e3 (1.5-7.1); NEUTROPHIL% 91.5 % (40-75); PLATELET COUNT 88 X10e3 (140-420); RED BLOOD COUNT 3.11 X10e (3.90-5.60); RED CELL DISTRIBUTION WIDTH 19.1 % (11.0-15.5); WHITE BLOOD COUNT 14.5 X10e3 (4.0-10.5)
[2017-05-16 05:53] LABS: DIFF IND YES
[2017-05-16 05:59] LABS: INR 1.7; PARTIAL THROMBOPLASTIN TIME 44.2 SECONDS (23.5-31.3); PROTHROMBIN TIME (PATIENT) 18.9 SECONDS (10.0-11.7)
[2017-05-16 06:08] LABS: ALBUMIN SERUM 1.9 g/dL (3.5-5.0); BILIRUBIN,TOTAL 3.2 mg/dL (0.2-2.0); BUN/CREATININE RATIO 20.71; CALCIUM SERUM 7.4 mg/dL (8.4-10.2); CREATININE SERUM 1.4 mg/dL (0.6-1.4); GLOM FILT RATE Estimated 44.9 mL/min (>60); MAGNESIUM 1.9 mg/dL (1.6-3.0); PHOSPHOROUS 2.4 mg/dL (2.5-4.6); POTASSIUM 3.1 mmol/L (3.5-5.1); PROTEIN TOTAL SERUM 5.2 g/dL (6.0-8.3)
[2017-05-16 07:15] LABS: ANISOCYTOSIS SL; PLATELET ESTIMATE DECREASED (NORMAL)
[2017-05-16 07:16] LABS: MICROCYTOSIS SL; TARGET CELLS SL
== END 2017-05-17 18:03 | DRG 853 ==
LOC: CED 03:09 → CICCU2 05:50 → CEDOF 05:50 → CED 06:06 → CEDOF 14:14 → CICCU2 22:27 → CICCU3 05-16 00:38 → C2A 05-17 17:04
PROVIDERS: Emergency Medicine; Family Medicine; Internal Medicine; Specialist; Surgery
PROC: 02HV33Z Insertion of Infusion Device into Superior Vena Cava, Percutaneous Approach (ICD-10-PCS; 2017-05-12)
PROC: B548ZZA Ultrasonography of Superior Vena Cava, Guidance (ICD-10-PCS; 2017-05-12)
PROC: B24BZZZ Ultrasonography of Heart with Aorta (ICD-10-PCS; 2017-05-12)
PROC: 0WPF0JZ Removal of Synthetic Substitute from Abdominal Wall, Open Approach (ICD-10-PCS; 2017-05-13)
PROC: 0D1L0Z4 Bypass Transverse Colon to Cutaneous, Open Approach (ICD-10-PCS; 2017-05-13)
PROC: 0DH63UZ Insertion of Feeding Device into Stomach, Percutaneous Approach (ICD-10-PCS; 2017-05-13)
PROC: 30243L1 Transfusion of Nonautologous Fresh Plasma into Central Vein, Percutaneous Approach (ICD-10-PCS; 2017-05-13)
PROC: 30243N1 Transfusion of Nonautologous Red Blood Cells into Central Vein, Percutaneous Approach (ICD-10-PCS; 2017-05-13)
PROC: 0DBL0ZZ Excision of Transverse Colon, Open Approach (ICD-10-PCS; principal; 2017-05-13 17:00)
DX: A41.9 Sepsis, unspecified organism (principal); R65.21 Severe sepsis with septic shock; J96.21 Acute and chronic respiratory failure with hypoxia; K63.1 Perforation of intestine (nontraumatic); J18.9 Pneumonia, unspecified organism; C78.00 Secondary malignant neoplasm of unspecified lung; N17.9 Acute kidney failure, unspecified; C78.7 Secondary malignant neoplasm of liver and intrahepatic bile duct; J44.0 Chronic obstructive pulmonary disease with (acute) lower respiratory infection; J96.22 Acute and chronic respiratory failure with hypercapnia; K57.92 Diverticulitis of intestine, part unspecified, without perforation or abscess without bleeding; C18.9 Malignant neoplasm of colon, unspecified; T85.79XA Infection and inflammatory reaction due to other internal prosthetic devices, implants and grafts, initial encounter; Z51.5 Encounter for palliative care; K21.9 Gastro-esophageal reflux disease without esophagitis; I48.2 Chronic atrial fibrillation; I35.0 Nonrheumatic aortic (valve) stenosis; I25.10 Atherosclerotic heart disease of native coronary artery without angina pectoris; Z79.01 Long term (current) use of anticoagulants; I12.9 Hypertensive chronic kidney disease with stage 1 through stage 4 chronic kidney disease, or unspecified chronic kidney disease; N18.9 Chronic kidney disease, unspecified; Z87.891 Personal history of nicotine dependence; N40.0 Benign prostatic hyperplasia without lower urinary tract symptoms; E11.22 Type 2 diabetes mellitus with diabetic chronic kidney disease; G47.33 Obstructive sleep apnea (adult) (pediatric); D69.6 Thrombocytopenia, unspecified; Z85.820 Personal history of malignant melanoma of skin
CPT/HCPCS: 36415; 36430; 36600; 71010; 71250; 74000; 74176; 74177; 76937; 77001; 80048; 80053; 80076; 80202; 81003; 82308; 82550; 82553; 82803; 82947; 83605; 83735; 83880; 84100; 84134; 84478; 84484; 85025; 85027; 85379; 85610; 85730; 86850; 86900; 86901; 86923; 87040; 87070; 87075; 87076; 87077; 87186; 87205; 87449; 87899; 88300; 88309; 92610; 93005; 93306; 94002; 94003; 94640; 94660; 94664; 94760; 94761; 96365; 99285; C1751; C9113; G8996-GN; G8997-GN; J0330; J0456; J0692; J0696; J1650; J1720; J1815; J1940; J2060; J2250; J2270; J2370; J2405; J2920; J3010; J3260; J3370; J3475; J3480; J3490; J7060; P9016; P9059; Q9967

== ENCOUNTER 2017-05-17 17:40 | Inpatient (IN) | payer OTHER ==
--- NOTE | ~2017-05-17 | DS ---
Unit #: [id number] #: [id number] Patient: NATALIA HENRY [id number] [address] [address] [id number] I MR#: [id number] NAME: NATALIA HENRY. ROOM: 215 Age: 86 Sex: M Admission Date: 05/17/2017 : 1930 Discharge Date: 05/19/2017 Attending Physician: Xiang Ochoa M.D. Primary Care Physician: David Vivas M.D. DISCHARGE SUMMARY DATE OF 05/18/2017. REASON FOR ADMISSION Hospice care/comfort care measures. HISTORY OF PRESENT ILLNESS/HOSPITAL COURSE The patient is an 86-year-old male, recently admitted to [facility]. Please refer to H and P for complete details. The patient was placed on routine comfort care measures. Ultimately, he was comfortable and he ultimately in no acute distress. Please refer to H and P from original hospice as well as from previous discharge summary for previous diagnosis. FINAL DISCHARGE DIAGNOSES/REASON FOR 1. Septic shock. 2. Colonic perforation. 3. Colon cancer. 4. Sepsis present on admission. 5. Suspected metastatic lesions within bilateral lungs. 6. Acute hypoxic respiratory failure. Dictated by... Zeinab Floyd/yessenia TD: 05/21/2017 16:43 JOB #: [id number] DISCHARGE SUMMARY Page 1 of 1 X Xiang Ochoa MD X DISCHARGE SUMMARY
--- NOTE | ~2017-05-17 | HP ---
Unit #: [id number] #: [id number] Patient: NATALIA HENRY [id number] [address] [address] [id number] I MR#: [id number] NAME: NATALIA HENRY. ROOM: 215 Age: 86 Sex: M Admission Date: 05/17/2017 : 1930 Attending Physician: Xiang Ochoa M.D. Primary Care Physician: David Vivas M.D. HISTORY AND PHYSICAL REASON FOR ADMISSION Comfort care measures. HISTORY OF PRESENT ILLNESS The patient is a very pleasant 86-year-old male recently admitted to [facility] secondary to dyspnea, respiratory failure, as well as, colon mass status post resection with pathology positive for colon carcinoma who unfortunately did not do well postoperatively, began developing mental status change and/or decline. Decision at that point in time, after review with oncology as well as with family, was made for comfort care measures only. Appropriate measures were initiated while patient was at [facility] and the hospice services were consulted. Eventually, patient was transferred to hospice scatter bed program for ongoing care. CURRENT CLINICAL DIAGNOSES As of May 17, 2017: 1. Colon carcinoma. 2. Colon perforation. 3. Sepsis present on admission from previous stay. 4. Likely metastatic lesions within lung. 5. Acute hypoxic respiratory failure. PLAN As per hospice care, comfort care measures only. Dictated by Zeinab Floyd/veda TD: 05/18/2017 15:10 JOB #: [id number] Unit #: [id number] #: [id number] Patient: NATALIA HENRY HISTORY AND PHYSICAL Page 1 of 1 X Xiang Ochoa MD X HISTORY AND PHYSICAL
[~2017-05-17 17:40] MED LIST changes: +AMARYL2 MG PO; +TENORMIN25 MG PO
== END 2017-05-19 03:28 | disposition expired | DRG 871 ==
LOC: C2A 17:40
DX: A41.9 Sepsis, unspecified organism (principal); R65.21 Severe sepsis with septic shock; J96.01 Acute respiratory failure with hypoxia; K63.1 Perforation of intestine (nontraumatic); C78.01 Secondary malignant neoplasm of right lung; C78.02 Secondary malignant neoplasm of left lung; C18.9 Malignant neoplasm of colon, unspecified; Z51.5 Encounter for palliative care
CPT/HCPCS: J2270